=== PATIENT | male | born 1955 | race Caucasian/White ===

== ENCOUNTER → 2018-07-03 07:17 | Outpatient (CLI) | payer OTHER, SELFPAY ==
--- NOTE | 2018-07-03 07:19 | ECHOD_ITS ---
Reason For Study: Previous Abnormal Study Procedure This was a 2D Doppler, Color Flow transthoracic echocardiogram. Exam performed in department. Left Ventricle Normal LV size. Left ventricular systolic function is normal. The estimated ejection fraction is 55 %. Stage 1 diastolic dysfunction. No regional wall motion abnormalities noted. Right Ventricle Normal RV size. Normal systolic function. Atria Normal left atrium. Normal right atrium. Patent foramen ovale. Mitral Valve Normal mitral valve. Tricuspid Valve Normal tricuspid valve. Aortic Valve Trisinus/trileaflet aortic valve. Pulmonic Valve Normal pulmonic valve. Great Vessels Moderately dilated aortic root. The pulmonary artery is normal size. Normal inferior vena cava. Pericardium/Pleural No pericardial effusion. Medication Performed a rapid injection of agitated mix of 9 cc saline and 1cc air to assess for atrial septal defect. MMode/2D Measurements & Calculations LVIDd: 4.7 cm IVSd: 1.3 cm Ao root diam: 5.0 cm LVIDs: 3.7 cm LVPWd: 0.89 cm LA dimension: 3.9 cm RVDd: 3.2 cm FS: 21.2 % LAV(MOD-bp): 48.4 ml LAV(MOD-bp) Indexed: 22.4 ml/m2 LA A4 area: 15.4 cm2 RA A4 area: 19.0 cm2 LAV(MOD-sp2): 56.6 ml LAV(MOD-sp4): 40.2 ml Time Measurements MV dec time: 0.27 sec Doppler Measurements & Calculations MV E max korey: 45.3 cm/sec Lat Peak E' Korey: 6.3 cm/sec Med Peak E' Korey: 5.4 cm/sec MV A max korey: 66.0 cm/sec E/E' lat: 7.2 E/E' med: 8.5 MV E/A: 0.69 Ao V2 max: 108.4 cm/sec AI max korey: 337.1 cm/sec LV V1 max: 97.2 cm/sec Ao max P.7 mmHg AI max P.4 mmHg LV V1 max P.8 mmHg Ao V2 mean: 73.0 cm/sec AI dec slope: 209.5 cm/sec2 LV V1 mean P.9 mmHg Ao mean P.5 mmHg AI P1/2t: 471.3 msec LV V1 mean: 63.0 cm/sec Ao V2 VTI: 22.3 cm LV V1 VTI: 17.5 cm PA V2 max: 88.6 cm/sec Interpretation Summary Normal LV size. Left ventricular systolic function is normal. The estimated ejection fraction is 55 %. Stage 1 diastolic dysfunction. Moderately dilated aortic root. Patent foramen ovale. Compared to the previous the aortic root is more dilated Ordering Physician: Shaggy Yeung Referring Physician: Mike Mccall Performed By: Ha Kerr RCS
--- NOTE | 2018-07-03 11:34 | STRESSREP ---
Stress Test Report Pharmacologic myocardial perfusion stress test. 62-year-old man for preoperative cardiac evaluation. Stress testing. Resting EKG demonstrates sinus rhythm with rate of 69 bpm normal intervals and noted resting blood pressures 122/80 mmHg. 0.4 mg of regadenoson was infused per usual protocol followed by rapid intravenous saline flush injection continuous EKG monitoring was performed. Patient maintained sinus rhythm throughout the recording. At rest there were no ST or T-wave changes noted suggest abnormal flow reserve at peak infusion no ST or T-wave changes were noted suggest abnormal flow reserve. The resting blood pressure was 126/74 with a final blood pressure of the same. Myocardial perfusion protocol. 11.0 mCi of technetium 99m sestamibi was injected at rest. 0.4 mg of regadenoson was infused per usual protocol peak infusion 33.0 mCi of technetium 99m sestamibi was injected stress images were obtained stress and rest images were reconstructed and compared in the short axis vertical long horizontal long axis. Gated images were also obtained pre- Perfusion SPECT analysis: Review of the stress images demonstrate normal uptake of tracer noted in all areas of the myocardium. The resting images similarly demonstrate normal uptake of tracer noted in all areas of the myocardium. No areas of reversibility are noted suggest ischemia. No previous infarct is noted. Gated SPECT analysis: The gated ejection fraction is 51%. Conclusion: Normal pharmacologic myocardial perfusion stress test. Preserved ejection fraction.
== END ==
PROVIDERS: Family Provider Family Medicine; PCP Family Medicine; Visit Provider Internal Medicine Cardiovascular Disease
DX: Z01.810 Encounter for preprocedural cardiovascular examination (principal); I25.10 Atherosclerotic heart disease of native coronary artery without angina pectoris
CPT/HCPCS: 78452; 93017; 93306; A9500; A4216; J2785

== ENCOUNTER 2018-07-04 09:57 | Observation (INO) | payer OTHER, SELFPAY ==
--- NOTE | 2018-06-22 08:14 | PCM.HP.BLA ---
History and Physical DATE OF SURGERY: 07/04/2018 SCHEDULED PROCEDURE: Left total knee arthroplasty HISTORY OF PRESENT ILLNESS: This is a 62-year-old male whose been having ongoing pain in his left knee for the past 10 years. Patient states his pain is constant and aching. He has increased pain going up and down stairs. Patient also has increased pain with prolonged walking. Pain is primarily over the medial joint line. Patient has difficult time with activities of daily living that requires walking. He has stumbled secondary to his left knee pain. Patient has tried conservative measures consisting of rest and previous cortisone injection with minimal relief. She has been on oral medications consisting of Advil, Aleve, Tylenol with minimal relief. Patient denies previous surgeries on the left knee. He has tried a brace without any significant relief. After failing conservative measures and discussing all treatment options with Dr. Olvin Chavez, the patient would like proceed with a left total knee arthroplasty. Patient currently denies any chest pain, shortness of breath, fevers chills, or recent infections. Patient will be getting surgical clearance from his primary care physician. He only lists hypercholesterolemia as a medical problem. REVIEW OF SYSTEMS: ROS: Const: Denies change in appetite, fever,or weight change. CV: Denies chest pain, heart murmur and irregular heartbeat. Resp: Denies cough, pneumonia, SOB, tuberculosis and wheezing. GI: Denies constipation, diarrhea, difficulty swallowing, heartburn, nausea, bloody stools and vomiting. : Urinary: denies incontinence. Musculo: Reports trouble walking and weakness, but denies leg swelling and limp. Skin: Denies Raynaud's, history of shingles and tattoo. Neuro: Denies ambulatory dysfunction, dizziness, numbness/tingling and tremor. Psych: Denies anxiety, insomnia and stress. Tera/Lymph: Denies anemia, bleeding/bruising tendency and past transfusion. Reviewed, no changes. PAST MEDICAL HISTORY: Advance Care Plan: Other Directive, P.O.A. Effective Date: 10/28/2017 PMH: Medical Problems: Hypercholesterolemia Accidents: Fracture - RT ARM Surgical Hx: Hip Replacement Rt - AISHA SOOD Anesthesia Complications: None Assistive Devices: Glasses Reviewed, no changes. SOCIAL HISTORY: SH: Marital: .Occupation: Currently Working - [employer].Work Status: Currently Working.Hand Dominance: Right-handed. Personal Habits: Cigarette Use: Former Cigarette Smoker.Alcohol: Occasionally.Drug Use: Denies Use.Enjoy Exercising: Never Exercises. Reviewed, no changes. VITALS: Ht: 73 Wt: 199lb Wt k.266 BMI: 26.3 BP: 124/82 T: 98.0 T: 36.7C ALLERGIES: No Known Drug Allergy MEDICATIONS: MS Contin 15 mg 1 by mouth every 12 hours, Oxycodone HCL 5 mg 1-2 tab by mouth every 4 hours, Meloxicam 7.5 mg 1 by mouth twice a day with food, Promethazine HCL 12.5 mg 1-2 tablets by mouth every 6 hours, Famotidine 20 mg 1 by mouth every day, Aspir-81 81 mg 1 by mouth every day, Glucosamine 500 mg 1po bid, Advil 200 mg as needed, Ibuprofen 200 mg 2 tablets by mouth for pain as needed PRE-OP EXAM: General appearance:NORMAL Other: Eyes: Conjunctivae and lids: NORMAL Pupils: ERR Ears, Nose, Mouth, and Throat: NORMAL Other: Inspection of lips, teeth and gums: NORMAL Other: Neck: Examination of neck: no masses noted. Respiratory: Assessment of respiratory effort: NORMAL Other: Auscultation of lungs: clear to auscultation no wheezes, rhonchi or rales. Cardiovascular: Auscultation of heart: regular rate and rhythm, no murmurs, gallops or rubs. Exam of carotid arteries: NORMAL Other: Gastrointestinal: Exam of abdomen: soft, nontender, nondistended bowel sounds present. PHYSICAL EXAMINATION: Patient does walk with antalgic gait. Patient has tenderness to palpation over the medial joint line. Range of motion left knee lacks 5 of extension to 120 of flexion. Positive crepitus upon range of motion. Patient does have varus alignment. Sensation intact to light touch. IMAGING STUDIES: X-rays of the left knee were obtained on June 02, 2018 which does reveal varus alignment with medial joint space narrowing, subchondral sclerosis, and osteophyte formation consistent with severe osteoarthritis. IMPRESSION: 1. Severe left knee osteoarthritis with varus alignment 2. Hypercholesterolemia PLAN: Dr. Chavez did discuss and review with the patient all treatment options including surgical versus nonsurgical options. Patient does wish to proceed with the above-stated procedure. Potential risks, benefits, and complications of the procedure were discussed in detail including but not limited to , infection, nerve and blood vessel damage, persistent pain, numbness, tingling, paresthesias, blood clot, pulmonary embolism, and requirement for possible further surgery. The patient expressed full understanding and has no further questions for the doctor. Patient does agree to proceed with the above-stated procedure and has signed the surgery consent form. ___ I have re-examined the patient. There are no clinical changes since date of exam. ___ See progress notes for changes. ___ Dictated on admission Date: Time: Signature:
[2018-06-22 15:10] VITALS: BP 126/70; PULSE 93; RESP 17; TEMP 37.2; O2SAT 96; BMI 26.5
--- NOTE | 2018-06-22 15:36 | SDCEKG_ITS ---
Test Reason : Blood Pressure : / mmHG Vent. Rate : 091 BPM Atrial Rate : 091 BPM P-R Int : 188 ms QRS Dur : 082 ms QT Int : 358 ms P-R-T Axes : 035 -24 035 degrees QTc Int : 440 ms Normal sinus rhythm Normal ECG Confirmed by JAMES POLO, ESTEE ([id number]), editor news RAHEL KIRK ([id number]) on 06/26/2018 2:39:55 PM Referred By: Olvin Chavez Confirmed By:ESTEE RAMIREZ MD
[2018-06-22 16:24] LABS: Absolute Lymphocyte Count 2.15 X10^3/ul (0.83-4.51); Absolute Neutrophil Count 3.6 X10^3/uL (2.0-7.7); Basophil# 0.02 X10^3/uL; Basophil% 0.3 % (0-1); Eosinophils% 3.1 % (0-5); Hematocrit 42.4 % (40-54); Hemoglobin 14.4 g/dl (13.0-16.5); Lymphocyte # 2.15 X10^3/ul (4.0); Lymphocyte % 33.2 % (19-41); Mean Corpuscular Hgb 32.4 pg (27.0-32.0); Mean Corpuscular Volume 95.3 fL (80-94); Mean Platelet Vol. 9.9 fl (6.2-12.0); Monocyte# 0.52 X10^3/uL; Neutrophil # 3.59 X10^3/uL (2.7-7.7); Neutrophil % 55.4 % (47-70); Platelet Count 230 K/mm3 (150-450); RBC Distribution Width CV 12.8 % (11.6-14.6); RBC Distribution Width SD 44.5 fl (35.1-43.9); Red Blood Count 4.45 M/mm3 (4.6-6.2); White Blood Count 6.5 K/mm3 (4.4-11.0)
[2018-06-22 16:30] LABS: POSITIVE COUNT NO; POSITIVE DIFFERENTIAL NO; POSITIVE MORPHOLOGY NO
[2018-06-22 16:38] LABS: Anion Gap 8 (5-15); BUN 24 mg/dL (7-18); BUN/Creat Ratio 21.1 RATIO (10-20); Calcium,Total 8.4 mg/dL (8.5-10.1); Chloride 111 mmol/L (98-107); Creatinine, Serum 1.14 mg/dL (0.70-1.30); EST Glomerular Filtration Rate 69 mL/min (>60); Est Glom Filt Rate - Afr Amer 84 mL/min (>60); Glucose 169 mg/dL (74-106); Potassium 3.9 mmol/L (3.5-5.1); Sodium Level 144 mmol/L (136-145)
--- NOTE | 2018-06-30 12:14 | CASEMGMT ---
Voicemail left for patient to return call regarding discharge needs following upcoming surgery. Meseret Walter LPN Clinical Support
--- NOTE | 2018-06-30 12:34 | CASEMGMT ---
Call placed to patient to discuss discharge needs following upcoming surgery. Per patient, a cardiac issue came up and patient is scheduled for a stress test Tuesday. Patient will have surgery Tuesday pending stress test results. Patient plans to return home and does have assistance. Patient has a walker, toilet riser. Patient is unsure whether outpatient physical therapy is set up yet. Patient has 3 steps into home and has bedroom/bathroom on 1st level of home. Informed patient that RN-CM will likely see patient during hospital stay to ensure all discharge needs are met. Meseret Walter LPN Clinical Support
[2018-07-04] VITALS (10 sets, daily range): BP systolic 118–150; BP diastolic 69–79; PULSE 78–97; RESP 14–18; TEMP 36.4–37.3; O2SAT 93–98; BMI 26.5
[2018-07-04] MEDS: Acetaminophen 500 MG Tablet 1000 MG PO ×3 (06:06→21:10)
[2018-07-04] MEDS: oxyCODONE HCl Cr 10 MG Tablet PO (06:06)
[2018-07-04] MEDS: Celecoxib 200 MG Capsule 400 MG PO (06:06)
--- NOTE | 2018-07-04 06:28 | RAD_ITS ---
STUDY: X-RAY - LEFT KNEE REASON FOR EXAM: Male, 62 years old. Total knee replacement. TECHNIQUE: 2 view(s) of the knee. COMPARISON: None. FINDINGS: Normal visualized distal femur. Normal visualized proximal tibia and fibula. Normal proximal tibiofibular articulation. The patient is status post total knee replacement. There is good alignment. Postoperative soft tissue changes. RAD/Knee 1 or 2 Views IMPRESSION: Status post total knee replacement. There is good alignment. Postoperative soft tissue changes. Electronically Signed: Giovanni Bowman MD at 13:03 EDT Tel [phone], Service support ,
[2018-07-04] MEDS: Cefazolin 2 GM in 0.9% Normal Saline 100 ML IV (07:10)
[2018-07-04] MEDS: Lactated Ringers 1,000 ML 999 ML IV (07:13)
--- NOTE | 2018-07-04 08:39 | PCM.OPRPT ---
Report of Operation Date of Procedure: 07/04/18 Pre-Operative Diagnosis: Left knee primary osteoarthritis Post-Operative Diagnosis: Left knee primary osteoarthritis Surgery/Procedure Performed:: Left total knee replacement Description of Surgical Findings:: Stable knee with good patella tracking program host: Darryl Gil Type of Anesthesia:: Spinal Anesthesiologist: Eriberto Field Special Medications: 2 g Ancef, 1 g TXA at incision, 1 g TXA closure, 10 mg Decadron, joint cocktail (5 mg Duramorph, 30 mL of 0.5% Ropivicaine, 1000 units of epinephrine, 30 mg of Toradol) Specimen's removed: Bony cuts Estimated Blood Loss (mL): 75 Fluids Replaced: 1000 mL crystalloid Description of Procedure: Implants used: 1. Samson size 5 press-fit triathlon cruciate retaining distal femoral component 2. Utopia size 6 press-fit tibial baseplate 3. Samson X3 11 mm CS polyethylene 4. [place] X3 35 mm asymmetric patella Brief history operative indications: 62-year-old m with history of left knee osteoarthritis with radiographic findings with loss of joint space, osteophyte formation and subchondral sclerosis. Failed conservative measures as mentioned in the H&P. Discussion of total knee arthroplasty as well as risk and benefits were discussed the patient including but not limited to blood loss, DVTs, PEs, neurovascular damage, general risk of anesthesia including loss of life, and stiffness or instability were discussed with patient. Patient demonstrated understanding and was able to sign informed consent. Procedure: On the date of procedure patient's left lower extremity was marked in the preoperative area. The patient was then taken back to the operating room where the patient was placed on the table in the supine position. All bony prominences were identified a well-padded. Anesthesia assumed control of the C-spine and airway and remained controlled throughout the remainder of the procedure. A tourniquet was placed on the left upper thigh and the leg was prepped in a sterile fashion. The surgeon then scrubbed at this time .Upon reentering the room left lower extremity was draped in a standard orthopedic fashion. A timeout was then called and everyone agreed upon the side, the site, the procedure to be performed, patient's identity and antibiotics given. Esmarch bandage was used to exsanguinate the extremity and the tourniquet was placed up to 250 mmHg with the knee in flexion. A midline skin incision was made and sharp dissection was taken down through skin subcutaneous tissue and fat. The standard medial parapatellar incision was made and the patella was subluxed laterally. The standard deep MCL release was done and the fat pad was resected. Next our attention was directed to the femur. Navigation pins were placed, navigation was registered. The distal femoral cutting block was pinned into place and 10 mm of distal femur resection was completed. The distal femoral cut was verified with navigation. The knee was then placed in deep flexion in the standard [employer] sizing guide was used to place the femoral component in 3? external rotation based on the posterior condyles. A size 5 4-in-1 cutting block was selected and pinned into place. The anterior cut was then made and checked for notching. The subsequent anterior chamfer cuts, posterior condylar cuts and posterior chamfer cuts were made while ensuring the MCL and LCL were protected. Our attention was then turned to the tibia where the navigation pins were placed, navigation was registered. [place] tibial cutting guide was used to make the appropriate tibial cut 90 degrees from the mechanical axis. Navigation was then used to verify the cut. A size 6 tibial base plate was selected. the knee was flexed to 90 degrees and the soft tissues and posterior osteophytes were removed from the joint. 40 cc of the periarticular injection was injected into the posterior medial corner of the joint. The appropriate trials were then placed on the femur and tibia. A trial polyethylene was trialed to ensure proper balancing and stability of the knee. Patella tracking, was then verified and corrected appropriately as needed. The appropriate tibial internal rotation was then marked with a bovie. Our attention was then directed to the patella. The patella was everted and a flat resection was made. The lug holes were drilled and the patella trial was placed. Patellar tracking was checked and deemed appropriate. Once we were happy lug holes were drilled for the femur and trial components were removed. Cement was mixed at this time and the tourniquet was let down the tibia was subluxed and pinned into place and the keel was punched and the canal was reamed. Final components were verified and opened, and cement was mixed in a vacuum. Samson Simplex cement was used. The wound was copiously irrigated with normal saline. When the cement was ready the press-fit components were impacted into place starting with the tibia, femur and finally the patella cemented into place. The trial poly component was placed and the knee was placed in full extension. All excess cement was removed in the process. Once the cement had cured the tracking, alignment and balance were verified and a size 11 mm polyethylene component was placed. Once the final components were placed the wound was copiously irrigated with normal saline solution and the periarticular injection was given. The wound was closed in a layer gurrola fashion using #1 vicryl interrupted sutures for the arthrotomy, 2-0 interrupted Vicryl suture for the subcuticular layer and belkis for final skin closure. A sterile compressive dressing was then placed. The patient was then awakened from anesthesia, transferred to the [place] and transferred to the PACU for recovery. Post op plan DVT ppx: ASA 81mg, thigh high compression stockings Follow up: in office in 2 weeks for wound check PT: to start POD #0 at hospital, outpatient PT should be arranged. My physician assistant manager was a vital part of this case. He was important in appropriate retraction during the case, and protection of soft tissues during bony cuts. His intimate knowledge of the case and my steps aided in safe and expedient completion of the procedure as well as appropriate position of the leg during the case. He was also vital in assisting with closure under my direct supervision. Grafts/Implants Used: Utopia triathlon press-fit total knee - Complications None - Admit VTE Documentation VTE Present on Admission: No VTE Mechan Device Prophylaxis: SCD's, Thigh High BRIDGETTE Hose VTE Pharm Prophylaxis ordered?: Yes
--- NOTE | 2018-07-04 08:42 | OP.PCM_ITS ---
Report of Operation Date of Procedure: 07/04/18 Pre-Operative Diagnosis: Left knee primary osteoarthritis Post-Operative Diagnosis: Left knee primary osteoarthritis Surgery/Procedure Performed:: Left total knee replacement Description of Surgical Findings:: Stable knee with good patella tracking salvager helper: Darryl Gil Type of Anesthesia:: Spinal Anesthesiologist: Eriberto Field Special Medications: 2 g Ancef, 1 g TXA at incision, 1 g TXA closure, 10 mg Decadron, joint cocktail (5 mg Duramorph, 30 mL of 0.5% Ropivicaine, 1000 units of epinephrine, 30 mg of Toradol) Specimen's removed: Bony cuts Estimated Blood Loss (mL): 75 Fluids Replaced: 1000 mL crystalloid Description of Procedure: Implants used: 1. Samson size 5 press-fit triathlon cruciate retaining distal femoral component 2. Lyons size 6 press-fit tibial baseplate 3. Samson X3 11 mm CS polyethylene 4. Lyons X3 35 mm asymmetric patella Brief history operative indications: 62-year-old m with history of left knee osteoarthritis with radiographic findings with loss of joint space, osteophyte formation and subchondral sclerosis. Failed conservative measures as mentioned in the H&P. Discussion of total knee arthroplasty as well as risk and benefits were discussed the patient including but not limited to blood loss, DVTs, PEs, neurovascular damage, general risk of anesthesia including loss of life, and stiffness or instability were discussed with patient. Patient demonstrated understanding and was able to sign informed consent. Procedure: On the date of procedure patient's left lower extremity was marked in the preoperative area. The patient was then taken back to the operating room where the patient was placed on the table in the supine position. All bony prominences were identified a well-padded. Anesthesia assumed control of the C-spine and airway and remained controlled throughout the remainder of the procedure. A tourniquet was placed on the left upper thigh and the leg was prepped in a sterile fashion. The surgeon then scrubbed at this time .Upon reentering the room left lower extremity was draped in a standard orthopedic fashion. A timeout was then called and everyone agreed upon the side, the site, the procedure to be performed, patient's identity and antibiotics given. Esmarch bandage was used to exsanguinate the extremity and the tourniquet was placed up to 250 mmHg with the knee in flexion. A midline skin incision was made and sharp dissection was taken down through skin subcutaneous tissue and fat. The standard medial parapatellar incision was made and the patella was subluxed laterally. The standard deep MCL release was done and the fat pad was resected. Next our attention was directed to the femur. Navigation pins were placed, navigation was registered. The distal femoral cutting block was pinned into plac e and 10 mm of distal femur resection was completed. The distal femoral cut was verified with navigation. The knee was then placed in deep flexion in the standard MoBeam sizing guide was used to place the femoral component in 3? external rotation based on the posterior condyles. A size 5 4-in-1 cutting block was selected and pinned into place. The anterior cut was then made and checked for notching. The subsequent anterior chamfer cuts, posterior condylar cuts and posterior chamfer cuts were made while ensuring the MCL and LCL were protected. Our attention was then turned to the tibia where the navigation pins were placed, navigation was registered. Qnovo tibial cutting guide was used to make the appropriate tibial cut 90 degrees from the mechanical axis. Navigation was then used to verify the cut. A size 6 tibial base plate was selected. the knee was flexed to 90 degrees and the soft tissues and posterior osteophytes were removed from the joint. 40 cc of the periarticular injection was injected into the posterior medial corner of the joint. The appropriate trials were then placed on the femur and tibia. A trial polyethylene was trialed to ensure proper balancing and stability of the knee. Patella tracking, was then verified and corrected appropriately as needed. The appropriate tibial internal rotation was then marked with a bovie. Our attention was then directed to the patella. The patella was everted and a flat resection was made. The lug holes were drilled and the patella trial was placed. Patellar tracking was checked and deemed appropriate. Once we were happy lug holes were drilled for the femur and trial components were removed. Cement was mixed at this time and the tourniquet was let down the tibia was subluxed and pinned into place and the keel was punched and the canal was reamed. Final components were verified and opened, and cement was mixed in a vacuum. Lyons Simplex cement was used. The wound was copiously irrigated with normal saline. When the cement was ready the press-fit components were impacted into place starting with the tibia, femur and finally the patella cemented into place. The trial poly component was placed and the knee was placed in full extension. All excess cement was removed in the process. Once the cement had cured the tracking, alignment and balance were verified and a size 11 mm polyethylene component was placed. Once the final components were placed the wound was copiously irrigated with normal saline solution and the periarticular injection was given. The wound was closed in a layer grurola fashion using #1 vicryl interrupted sutures for the arthrotomy, 2-0 interrupted Vicryl suture for the subcuticular layer and belkis for final skin closure. A sterile compressive dressing was then placed. The patient was then awakened from anesthesia, transferred to the [place] and transferred to the PACU for recovery. Post op plan DVT ppx: ASA 81mg, thigh high compression stockings Follow up: in office in 2 weeks for wound check PT: to start POD #0 at hospital, outpatient PT should be arranged. My physician trade sales assistant was a vital part of this case. He was important in appropriate retraction during the case, and protection of soft tissues during bony cuts. His intimate knowledge of the case and my steps aided in safe and expedient completion of the procedure as well as appropriate position of the leg during the case. He was also vital in assisting with closure under my direct supervision. Grafts/Implants Used: Lyons triathlon press-fit total knee - Complications None - Admit VTE Documentation VTE Present on Admission: No VTE Mechan Device Prophylaxis: SCD's, Thigh High BRIDGETTE Hose VTE Pharm Prophylaxis ordered?: Yes
[2018-07-04] MEDS: Famotidine 20 MG Tablet PO (12:29)
[2018-07-04] MEDS: Senna/Docusate Sodium 1 Tablet 2 TABLET PO ×2 (12:29→21:10)
[2018-07-04] MEDS: oxyCODONE 5 MG Tablet PO (12:31)
[2018-07-04] MEDS: Ketorolac 15 MG/ML Vial IV ×2 (12:31→18:34)
[2018-07-04] MEDS: Lactated Ringers 1,000 ML 125 ML IV (12:35)
--- NOTE | 2018-07-04 13:21 | CASEMGMT ---
RN CM Note. Intro role of CM to patient. Pt states he plans to return home and [facility] set up Home Health. Pt does not know which agency. Call to surgery coordinator to request [facility] agency- message left. Has equipment @ home, brother will be able to assist pt. Aureliano BROTHERS BSN ACM
[2018-07-04] MEDS: Cefazolin 1 GM/50 ML BAG IV ×2 (14:33→22:59)
[2018-07-04] MEDS: Aspirin 81 MG TAB.CHEW PO (18:30)
[2018-07-05 05:00] VITALS: BP 115/64; PULSE 66; RESP 18; TEMP 36.6
[2018-07-05] MEDS: Acetaminophen 500 MG Tablet 1000 MG PO (05:23)
[2018-07-05 06:17] LABS: Hemoglobin 12.4 g/dl (13.0-16.5); Mean Corp Hgb Conc 34.4 g/gl (32-36); Mean Corpuscular Hgb 32.8 pg (27.0-32.0); Mean Corpuscular Volume 95.2 fL (80-94); Mean Platelet Vol. 9.8 fl (6.2-12.0); Platelet Count 191 K/mm3 (150-450); RBC Distribution Width CV 12.3 % (11.6-14.6); RBC Distribution Width SD 41.8 fl (35.1-43.9); Red Blood Count 3.78 M/mm3 (4.6-6.2); White Blood Count 9.5 K/mm3 (4.4-11.0)
[2018-07-05 06:21] LABS: Scan Indicated on CBC? Y/N NO
[2018-07-05 06:40] LABS: Anion Gap 6 (5-15); BUN 17 mg/dL (7-18); BUN/Creat Ratio 16.7 RATIO (10-20); Calcium,Total 8.1 mg/dL (8.5-10.1); Chloride 109 mmol/L (98-107); Creatinine, Serum 1.02 mg/dL (0.70-1.30); EST Glomerular Filtration Rate 79 mL/min (>60); Est Glom Filt Rate - Afr Amer 95 mL/min (>60); Estimated Creatinine Clearance 85.95 ml/min; Glucose 108 mg/dL (74-106); Potassium 4.1 mmol/L (3.5-5.1); Sodium Level 141 mmol/L (136-145)
--- NOTE | 2018-07-05 07:06 | PCM.PN.ORT ---
Subjective: The patient was sitting in bedside chair upon examination. Patient denies any chest pain, shortness of breath, dizziness, lightheadedness, nausea or vomiting, or calf pain. Pain is controlled on medications. No adverse overnight events. Overall patient is doing well. Patient was initially planned for an outpatient total knee arthroplasty. However patient had an abnormal echocardiogram in which he followed with Dr Yeung. Patient underwent a myocardial perfusion scan and was cleared for surgery by Dr. Yeung. Patient is following up outpatient with the cardiology after surgery. Patient already has all of his medications for discharge since this was initially to be an outpatient total knee replacement. Objective: Vital signs stable and afebrile. Patient is able to plantarflex and dorsiflex actively. Sensation is intact to light touch to saphenous, sural, superficial and deep peroneal, and tibial distribution. Dressing is clean dry and intact. Negative Homans bilaterally, negative signs and symptoms of DVT. - Physical Exam General: Alert, Oriented x3, Cooperative, No apparent distress Vital Signs Temp Pulse Resp BP Pulse Ox 97.9 F 66 18 115/64 98 07/05/18 05:00 07/05/18 05:00 07/05/18 05:00 07/05/18 05:00 07/04/18 20:50 Oxygen Flow Rate (L/min) 2 Oxygen Delivery Method Room Air Weight: 91.2 kg Body Mass Index (BMI) 26.5 Intake and Output for Last 24 Hours 07/03/18 07/04/18 07/05/18 23:59 23:59 23:59 Intake Total 3846 / 3846 925 / 925 Output Total 1550 / 1550 Balance 3846 / 3846 -625 / -625 Laboratory Tests Past 24 Hrs 07/05/18 07/05/18 05:15 05:15 WBC 9.5 RBC 3.78 L Hgb 12.4 L Hct 36.0 L MCV 95.2 H MCH 32.8 H MCHC 34.4 RDW 12.3 RDW Differential 41.8 Plt Count 191 MPV 9.8 Sodium 141 Potassium 4.1 Chloride 109 H Carbon Dioxide 26.0 Anion Gap 6 BUN 17 Creatinine 1.02 Estim Creat Clear Calc 85.95 Est GFR (MDRD) Af Amer 95 Est GFR (MDRD) Non-Af 79 BUN/Creatinine Ratio 16.7 Glucose 108 H Calcium 8.1 L Medical Necessity - Tobacco Use Smoking Status: Former smoker Tobacco Use: Cigarettes Assessment/Plan All Active Problems (Last Updated 07/03/18 @ 15:01 by Jennifer Lewis) Preop cardiovascular exam (Acute) 1. S/P left total knee arthroplasty POD #1 2. Continue Pain Medications: Tylenol and OxyIR, patient already has prescriptions 3. DVT Prophylaxis: Aspirin 81 mg twice daily for 4 weeks postoperatively 4. PT/OT: Weightbearing as tolerated 5. H & H: 12.4/36.0, asymptomatic 6. Encouraged Incentive Spirometry 7. Disposition: Plan is for discharge home today. Patient is orthopedically stable. Patient already has all prescriptions at home. Patient will follow-up per postop instructions. He has set up for home health physical therapy. Patient will also follow-up with cardiology postoperatively as scheduled.
--- NOTE | 2018-07-05 07:14 | DCINST_ITS ---
Discharge Diet: No Restrictions Discharge Activity: May Not Drive May shower in (days): 1 - Turned dressing away from water Ice area for (Minutes): 20 - every hour while awake. Weight Bearing Status: Weight bearing as tolerated Elevate: Operative Extremity Additional Activity Instructions:: Wear elastic stockings for 2 weeks after your surgery. Call your doctor if your incision/area has: Continuous Slow Oozing, Sudden Increased Bleeding, Increased Pain/ Swelling, Increased Redness, Foul Smelling Discharge Call your doctor if you observe: Fever of 101 or Higher, Coldness, Increased Pain, Numbness or Tingling, Change in Color, Calf discomfort, Uncontrolled pain Remove Dressing in (days):: 4 - Okay to remove on July 09, 2018 Additional Instructions: Follow [facility] postop instructions Allergies/Adverse Reactions: Allergies No Known Allergies Allergy (Verified 06/28/18 14:23) Medications to take at Discharge Acetaminophen [Tylenol] 1,000 mg PO Q8 tablet 07/05/18 Aspirin [Aspirin, Baby] 81 mg PO BIDCM tab.chew 07/05/18 Famotidine [Pepcid] 20 mg PO DAILY tablet 07/05/18 Oxycodone [Oxyir] 5 - 10 mg PO Q4H PRN PRN 7 Days tablet 07/05/18 Senna/Docusate Sodium [Senokot-S] 2 tablet PO BID tablet 07/05/18 Primary Care Physician: Mike Mccall MD [Primary Care Provider] - Test Results: Test results from this visit will be discussed in further detail at your follow- up appointment, if applicable. Please Follow Up With: Physical therapy When: 07/07/18 @ 10:30 am Please Follow Up With: Darryl Gil PA-C When: 07/17/18 @ 3:00 pm
[2018-07-05 07:22] VITALS: O2SAT 95
[2018-07-05] MEDS: oxyCODONE 5 MG Tablet PO ×2 (07:29→11:29)
[2018-07-05] MEDS: Meloxicam 7.5 MG Tablet PO (08:20)
[2018-07-05] MEDS: Famotidine 20 MG Tablet PO (08:20)
[2018-07-05] MEDS: Aspirin 81 MG TAB.CHEW PO (08:20)
[2018-07-05] MEDS: Senna/Docusate Sodium 1 Tablet 2 TABLET PO (08:21)
[2018-07-05 08:50] VITALS: BP 113/68; PULSE 63; RESP 18; TEMP 37; O2SAT 95
--- NOTE | 2018-07-05 10:32 | CASEMGMT ---
Patient to discharge with HHC. HHC setup by [facility] with [facility]. DENEEN CM faxed discharge instructions to [facility] and called to confirm discharge for today. CM will continue to follow this patient and plan for a safe discharge.
== END 2018-07-05 11:43 | disposition home health service (06) ==
PROVIDERS: Admitting Provider Specialist; Family Provider Family Medicine; PCP Family Medicine; Referring Provider Specialist; Visit Provider Specialist
PROC: (CPT 27447; principal; 2018-07-04 06:45)
DX: M17.12 Unilateral primary osteoarthritis, left knee (principal); Z87.891 Personal history of nicotine dependence; E78.00 Pure hypercholesterolemia, unspecified; Z23 Encounter for immunization; Z79.82 Long term (current) use of aspirin; Z79.899 Other long term (current) drug therapy
CPT/HCPCS: 27447; 64447; 36415; 73560; 80048; 85025; 85027; 87081; 93005; 96361; 96365; 96366; 96375; 96376; 97110; 97116; 97161; 97166; 97530; 99218; 99251; 99406; C1776; J7120; 90686; G0378; G0379; G0463; J2405

== ENCOUNTER → 2018-09-21 13:22 | Outpatient (CLI) | payer OTHER, SELFPAY ==
--- NOTE | 2018-09-21 13:24 | CT_ITS ---
STUDY: CTA CHEST REASON FOR EXAM: Male, 63 years old. History of a dilated aortic root. RADIATION DOSAGE (If Supplied By Facility): CTDIvol = ( 13.69 ) mGy, DLP = ( 540.14 ) mGycm TECHNIQUE: The examination was performed with the intravenous administration of 100CC ml of Isovue 370 contrast material. Post-processing of the angiographic images was performed, with multiplanar reformation and 3D reconstruction. Individualized dose optimization techniques were used for this CT. COMPARISON: None. FINDINGS: Normal enhancement of the main pulmonary artery and right and left pulmonary arteries. Normal enhancement of the bilateral peripheral pulmonary arteries. There is no demonstrated pulmonary embolism. There is aneurysmal dilatation of the ascending aorta. The transverse diameter of the ascending aorta measures 44.9 mm's. There is no demonstrated aortic dissection. Normal heart and pericardium. There are visualized mediastinal lymph nodes, which are within normal size limits, and with normal morphology. Normal hilar regions. Normal visualized trachea and bronchi. The lungs are well expanded. Normal pulmonary parenchyma. There is thickening of the left major fissure. Normal chest wall structures. There are degenerative changes of thoracic spine. There is a 2.3 cm x 2 cm hypodensity in the posterior medial aspect of the right lobe of the liver suggestive of a small cyst. There is also evidence of a similar-appearing nodule measuring 1.3 cm in the dome of the liver. Hyperplasia of the left adrenal gland. CT/CTA Chest W/WO Contrast IMPRESSION: Dilatation of the root of the aorta with a transverse dimension of 44.9 mm. Hyperplasia of the left adrenal gland. Hepatic cysts. Electronically Signed: Giovanni Bowman MD at 15:06 EST Tel [phone], Service support ,
[2018-09-21 13:41] LABS: CREATININE FINGERSTICK 1.1 mg/dL (0.70-1.30); EGFR FINGERSTICK > 60.0000 mL/min (>60)
--- OUTSIDE RECORDS SUMMARY | 2018-11-07 09:25 | XMS RPT_ITS ---
:1955 Author Organization [place] Support Name Relationship Address Phone PARESH CARDONA Unavailable Unavailable + [place] [address] FREDY STEVENS Unavailable Unavailable + [place] [address] [employer] Unavailable [address] + [place] [address] PARESH CARDONA Unavailable Unavailable + [place] [address] FREDY STEVENS Unavailable Unavailable + [place] [address] [employer] Unavailable [address] + [place] [address] PARESH CARDONA Unavailable Unavailable + [place] [address] FREDY STEVENS Unavailable Unavailable + [place] [address] [employer] Unavailable [address] + [place] [address] PARESH CARDONA Unavailable Unavailable + [place] [address] DARYL STEVENSRY Unavailable Unavailable + [place] [address] [employer] Unavailable [address] + [place] [address] PARESH CARDONA Unavailable Unavailable + [place] [address] [employer] Unavailable [address] + [place] [address] PARESH CARDONA Unavailable Unavailable + [place] [address] [employer] Unavailable [address] + [place] [id number] PARESH CARDONA Unavailable Unavailable + [place] [address] FREDY STEVENS Unavailable Unavailable + [place] [id number] [employer] Unavailable [address] [facility] [address] + [place] [phone] Care Team Providers Name Role Phone Wayne See Attending Unavailable Stencel, Adilson Primary Care Unavailable Furness, Wayne Lennon Attending Unavailable Stencel, Adilson Primary Care Unavailable Gamal, [place] Attending Unavailable Gamal, [place] Referring Unavailable STENCEL, ADILSON Primary Care Unavailable KathyOlvin Admitting Unavailable Kathy, Olvin Attending Unavailable Kathy, Olvin Referring Unavailable STENCEL, ADILSON Primary Care Unavailable Jennifer Lewis Attending Unavailable Gamal, [place] Attending Unavailable STENCEL, ADILSON Referring Unavailable STENCEL, ADILSON Primary Care Unavailable Gamal, [place] Attending Unavailable Gamal, Shaggy Referring Unavailable STENCEL, ADILSON Primary Care Unavailable Gamal, [place] Attending Unavailable Kathy, Olvin Referring Unavailable Gamal, [place] Attending Unavailable Gamal, Shaggy Referring Unavailable PROBLEMS PROBLEMS DATE TYPE CONDITION / CODE ATTENDING STATUS SOURCE 07/20/2018 Unknown Z01.810 - Encounter Gamal, Shaggy Active Chaitanya for preprocedural [facility] examination / Repository Z01.810(ICD-10) PROCEDURES PROCEDURES No Procedure Records FoundRESULTS RESULTS CREATININE FINGERSTICK Collected: 09/21/2018 Status: F Source: [place] 1:33 PM [facility] REPOSITORY TYPE CODE TESTS RESULT OUT OF RANGE REFERENCE UNITS LAB L9100.0210 0.70-1.30 mg/dL Normal CREATININE WB 1.1 LAB L9100.0220 >60 mL/min EGFR WB Normal > 60.0000 Performed By: #### L9100.0200 #### [facility] Point of Care [address] [place] [address] CTA CHEST W/WO Observed: 09/21/2018 Status: F Source: [place] CONTRAST 1:24 PM [facility] REPOSITORY [facility] Imaging Services [address] [place] [address] CTA Chest W/WO Contrast MR#: [id number] Acct: [id number] Name: AUBREE STEVENS Rep #: [id number] : 1955 M 63 From: Giovanni Bowman MD PCP: Adilson Mccall MD Status: REG CLI Study: CTA Chest W/WO Contrast Date of Exam: 09/21/18 Exam# [id number] Ordering Dr: Shaggy Yeung MD STUDY: CTA CHEST REASON FOR EXAM: Male, 63 years old. History of a dilated aortic root. RADIATION DOSAGE (If Supplied By Facility): CTDIvol = ( 13.69 ) mGy, DLP = ( 540.14 ) mGycm TECHNIQUE: The examination was performed with the intravenous administration of 100CC ml of Isovue 370 contrast material. Post-processing of the angiographic images was performed, with multiplanar reformation and 3D reconstruction. Individualized dose optimization techniques were used for this CT. COMPARISON: None. FINDINGS: Normal enhancement of the main pulmonary artery and right and left pulmonary arteries. Normal enhancement of the bilateral peripheral pulmonary arteries. There is no demonstrated pulmonary embolism. There is aneurysmal dilatation of the ascending aorta. The transverse diameter of the ascending aorta measures 44.9 mm's. There is no demonstrated aortic dissection. Normal heart and pericardium. There are visualized mediastinal lymph nodes, which are within normal size limits, and with normal morphology. Normal hilar regions. Normal visualized trachea and bronchi. The lungs are well expanded. Normal pulmonary parenchyma. There is thickening of the left major fissure. Normal chest wall structures. There are degenerative changes of thoracic spine. There is a 2.3 cm x 2 cm hypodensity in the posterior medial aspect of the right lobe of the liver suggestive of a small cyst. There is also evidence of a similar-appearing nodule measuring 1.3 cm in the dome of the liver. Hyperplasia of the left adrenal gland. CT/CTA Chest W/WO Contrast IMPRESSION: Dilatation of the root of the aorta with a transverse dimension of 44.9 mm. Hyperplasia of the left adrenal gland. Hepatic cysts. Electronically Signed: Giovanni Bowman MD at 15:06 EST Tel [phone], Service support , CC: Shaggy Yeung MD; Adilson Mccall MD Flexo Operator: Signed DISCHARGE INSTRUCTION Observed: 07/05/2018 Status: F Source: [place] 7:16 AM [facility] REPOSITORY [facility] Medical Records Department [address] [place] [address] Instructions for Home/Discharge Instructions 07/05/18 0712 MR#: [id number] Acct: [id number] Name: AUBREE STEVENS Rep #: [id number] : 1955 62 From: Darryl Gil PA-C PCP: Adilson Mccall MD Status: ADM ISABELLE ADDENDUM by Darryl DEVLIN on 07/05/18 at 0716 There was an error with regards to follow-up: Patient's follow- up with Iftikhar Gil is on 07/17/18 @ 8:30 am. 07/05/18 0716 Date Darryl Gil PA-C cc: Adilson Mccall MD * Signed Discharge Diet: No Restrictions Discharge Activity: May Not Drive May shower in (days): 1 - Turned dressing away from water Ice area for (Minutes): 20 - every hour while awake. Weight Bearing Status: Weight bearing as tolerated Elevate: Operative Extremity Additional Activity Instructions:: Wear elastic stockings for 2 weeks after your surgery. Call your doctor if your incision/area has: Continuous Slow Oozing, Sudden Increased Bleeding, Increased Pain/ Swelling, Increased Redness, Foul Smelling Discharge Call your doctor if you observe: Fever of 101 or Higher, Coldness, Increased Pain, Numbness or Tingling, Change in Color, Calf discomfort, Uncontrolled pain Remove Dressing in (days):: 4 - Okay to remove on July 09, 2018 Additional Instructions: Follow [facility] postop instructions Allergies/Adverse Reactions: Allergies No Known Allergies Allergy (Verified 06/28/18 14:23) Medications to take at Discharge Acetaminophen [Tylenol] 1,000 mg PO Q8 tablet 07/05/18 Aspirin [Aspirin, Baby] 81 mg PO BIDCM tab.chew 07/05/18 Famotidine [Pepcid] 20 mg PO DAILY tablet 07/05/18 Oxycodone [Oxyir] 5 - 10 mg PO Q4H PRN PRN 7 Days tablet 07/05/18 Senna/Docusate Sodium [Senokot-S] 2 tablet PO BID tablet 07/05/18 Primary Care Physician: Adilson Mccall MD [Primary Care Provider] - Test Results: Test results from this visit will be discussed in further detail at your follow-up appointment, if applicable. Please Follow Up With: Physical therapy When: 07/07/18 @ 10:30 am Please Follow Up With: Darryl Gil PA-C When: 07/17/18 @ 3:00 pm 07/05/18 0714 <Electronically signed by Darryl Gil PA-C> Date Darryl Gil PA-C CC: Adilson Mccall MD CBC-COMPLETE BLOOD CNT Collected: 07/05/2018 Status: F Source: [place] NO DIFF 5:15 AM [facility] REPOSITORY TYPE CODE TESTS RESULT OUT OF RANGE REFERENCE UNITS LAB L100.1000 4.4-11.0 K/mm3 Normal WBC 9.5 LAB L100.1200 4.6-6.2 M/mm3 Low RBC 3.78 LAB L100.1300 13.0-16.5 g/dl Low HGB 12.4 LAB L100.1400 40-54 % Low HCT 36.0 LAB L100.1500 80-94 fL High MCV 95.2 LAB L100.1600 27.0-32.0 pg High MCH 32.8 LAB L100.1700 32-36 g/gl Normal MCHC 34.4 LAB L100.1810 11.6-14.6 % Normal RDW CV 12.3 LAB L100.1820 35.1-43.9 fl Normal RDW SD 41.8 LAB L100.1900 150-450 K/mm3 Normal PLT 191 LAB L100.2000 6.2-12.0 fl Normal MPV 9.8 Performed By: #### L100.0500 #### [facility] [address] [place], [address] BASIC METABOLIC Collected: 07/05/2018 Status: F Source: [place] PROFILE (BMP) 5:15 AM [facility] REPOSITORY TYPE CODE TESTS RESULT OUT OF RANGE REFERENCE UNITS LAB L501.0100 74-106 mg/dL High GLU 108 Result Comment: Fasting Glucose result from 100 to 125 mg/dL suggests IMPAIRED HOMEOSTASIS per A.D.A. criteria. Please note revised GLUCOSE reference range effective 2017. LAB L501.1000 7-18 mg/dL Normal BUN 17 LAB L501.1100 0.70-1.30 mg/dL Normal CREAT,SERUM 1.02 Result Comment: The validity of the calculated GFR AND GFRAA in patients over 70 years has not been determined. Clinical correlation is essential. LAB L501.1110 >60 mL/min Normal EST GFR 79 Result Comment: Non- GFR Calc LAB L501.1115 >60 mL/min Normal EST GFR - AA 95 Result Comment: GFR Calc LAB L501.1255 ml/min Normal Estimated CRCL 85.95 LAB L501.1300 10-20 RATIO Normal BUN/CRE 16.7 LAB L501.2200 8.5-10 mg/dL Low .1 CA 8.1 LAB L501.5300 136-14 mmol/L Normal 5 NA 141 LAB L501.5600 3.5-5. mmol/L Normal 1 K 4.1 LAB L501.5900 98-107 mmol/L High CL 109 LAB L501.6100 21.0-3 mmol/L Normal 2.0 CO2 26.0 LAB L501.6200 5-15 Normal GAP 6 Performed By: #### L500.2500 #### [facility] [address] [place], [address] OPERATIVE REPORT Observed: 07/04/2018 Status: F Source: [place] 8:42 AM [facility] REPOSITORY [facility] Medical Records Department [address] [place] [address] Operative Report 07/04/18 0839 MR#: [id number] Acct: [id number] Name: AUBREE STEVENS Rep #: [id number] : 1955 62 From: Olvin Chavez MD PCP: Adilson Mccall MD Status: ADM IN Y [id number] Report of Operation Date of Procedure: 07/04/18 Pre-Operative Diagnosis: Left knee primary osteoarthritis Post-Operative Diagnosis: Left knee primary osteoarthritis Surgery/Procedure Performed:: Left total knee replacement Description of Surgical Findings:: Stable knee with good patella tracking case management manager: Darryl Gil Type of Anesthesia:: Spinal Anesthesiologist: Eriberto Field Special Medications: 2 g Ancef, 1 g TXA at incision, 1 g TXA closure, 10 mg Decadron, joint cocktail (5 mg Duramorph, 30 mL of 0.5% Ropivicaine, 1000 units of epinephrine, 30 mg of Toradol) Specimen's removed: Bony cuts Estimated Blood Loss (mL): 75 Fluids Replaced: 1000 mL crystalloid Description of Procedure: Implants used: 1. Samson size 5 press-fit triathlon cruciate retaining distal femoral component 2. Samson size 6 press-fit tibial baseplate 3. Winder X3 11 mm CS polyethylene 4. Winder X3 35 mm asymmetric patella Brief history operative indications: 62-year-old m with history of left knee osteoarthritis with radiographic findings with loss of joint space, osteophyte formation and subchondral sclerosis. Failed conservative measures as mentioned in the H AND P. Discussion of total knee arthroplasty as well as risk and benefits were discussed the patient including but not limited to blood loss, DVTs, PEs, neurovascular damage, general risk of anesthesia including loss of life, and stiffness or instability were discussed with patient. Patient demonstrated understanding and was able to sign informed consent. Procedure: On the date of procedure patient's left lower extremity was marked in the preoperative area. The patient was then taken back to the operating room where the patient was placed on the table in the supine position. All bony prominences were identified a well-padded. Anesthesia assumed control of the C-spine and airway and remained controlled throughout the remainder of the procedure. A tourniquet was placed on the left upper thigh and the leg was prepped in a sterile fashion. The surgeon then scrubbed at this time .Upon reentering the room left lower extremity was draped in a standard orthopedic fashion. A timeout was then called and everyone agreed upon the side, the site, the procedure to be performed, patient's identity and antibiotics given. Esmarch bandage was used to exsanguinate the extremity and the tourniquet was placed up to 250 mmHg with the knee in flexion. A midline skin incision was made and sharp dissection was taken down through skin subcutaneous tissue and fat. The standard medial parapatellar incision was made and the patella was subluxed laterally. The standard deep MCL release was done and the fat pad was resected. Next our attention was directed to the femur. Navigation pins were placed, navigation was registered. The distal femoral cutting block was pinned into place and 10 mm of distal femur resection was completed. The distal femoral cut was verified with navigation. The knee was then placed in deep flexion in the standard [employer] sizing guide was used to place the femoral component in 3 external rotation based on the posterior condyles. A size 5 4-in-1 cutting block was selected and pinned into place. The anterior cut was then made and checked for notching. The subsequent anterior chamfer cuts, posterior condylar cuts and posterior chamfer cuts were made while ensuring the MCL and LCL were protected. Our attention was then turned to the tibia where the navigation pins were placed, navigation was registered. [employer] tibial cutting guide was used to make the appropriate tibial cut 90 degrees from the mechanical axis. Navigation was then used to verify the cut. A size 6 tibial base plate was selected. the knee was flexed to 90 degrees and the soft tissues and posterior osteophytes were removed from the joint. 40 cc of the periarticular injection was injected into the posterior medial corner of the joint. The appropriate trials were then placed on the femur and tibia. A trial polyethylene was trialed to ensure proper balancing and stability of the knee. Patella tracking, was then verified and corrected appropriately as needed. The appropriate tibial internal rotation was then marked with a bovie. Our attention was then directed to the patella. The patella was everted and a flat resection was made. The lug holes were drilled and the patella trial was placed. Patellar tracking was checked and deemed appropriate. Once we were happy lug holes were drilled for the femur and trial components were removed. Cement was mixed at this time and the tourniquet was let down the tibia was subluxed and pinned into place and the keel was punched and the canal was reamed. Final components were verified and opened, and cement was mixed in a vacuum. Samson Simplex cement was used. The wound was copiously irrigated with normal saline. When the cement was ready the press-fit components were impacted into place starting with the tibia, femur and finally the patella cemented into place. The trial poly component was placed and the knee was placed in full extension. All excess cement was removed in the process. Once the cement had cured the tracking, alignment and balance were verified and a size 11 mm polyethylene component was placed. Once the final components were placed the wound was copiously irrigated with normal saline solution and the periarticular injection was given. The wound was closed in a layer gurrola fashion using #1 vicryl interrupted sutures for the arthrotomy, 2-0 interrupted Vicryl suture for the subcuticular layer and belkis for final skin closure. A sterile compressive dressing was then placed. The patient was then awakened from anesthesia, transferred to the rprospect and transferred to the PACU for recovery. Post op plan DVT ppx: ASA 81mg, thigh high compression stockings Follow up: in office in 2 weeks for wound check PT: to start POD #0 at hospital, outpatient PT should be arranged. My physician business office assistant was a vital part of this case. He was important in appropriate retraction during the case, and protection of soft tissues during bony cuts. His intimate knowledge of the case and my steps aided in safe and expedient completion of the procedure as well as appropriate position of the leg during the case. He was also vital in assisting with closure under my direct supervision. Grafts/Implants Used: Winder triathlon press-fit total knee - Complications None - Admit VTE Documentation VTE Present on Admission: No VTE Mechan Device Prophylaxis: SCD's, Thigh High BRIDGETTE Hose VTE Pharm Prophylaxis ordered?: Yes 07/04/18 0842 <Electronically signed by Olvin Chavez MD> Date Olvin Chavez MD CC: Adilson Mccall MD; Olvin Chavez MD Signed KNEE 1 OR 2 VIEWS Observed: 07/04/2018 Status: F Source: [place] 6:30 AM [facility] REPOSITORY [facility] Imaging Services [address] [place] [address] Knee 1 or 2 Views MR#: [id number] Acct: [id number] Name: AUBREE STEVENS Rep #: [id number] : 1955 M 62 From: Giovanni Bowman MD PCP: Adilson Mccall MD Status: ADM IN Study: Knee 1 or 2 Views Date of Exam: 07/04/18 Exam# [id number] Ordering Dr: Olvin Chavez MD STUDY: X-RAY - LEFT KNEE REASON FOR EXAM: Male, 62 years old. Total knee replacement. TECHNIQUE: 2 view(s) of the knee. COMPARISON: None. FINDINGS: Normal visualized distal femur. Normal visualized proximal tibia and fibula. Normal proximal tibiofibular articulation. The patient is status post total knee replacement. There is good alignment. Postoperative soft tissue changes. RAD/Knee 1 or 2 Views IMPRESSION: Status post total knee replacement. There is good alignment. Postoperative soft tissue changes. Electronically Signed: Giovanni Bowman MD at 13:03 EDT Tel [phone], Service support , CC: Adilson Mccall MD; Olvin Chavez MD Flexo Operator: Signed STRESS REPORT Observed: 07/03/2018 Status: F Source: [place] 11:37 AM [facility] REPOSITORY [facility] Cardiovascular Services [address] [place] [address] MR#: [id number] Acct: [id number] Name: AUBREE STEVENS Rep #: [id number] : 1955 62 From: Shaggy Yeung MD Primary Care: Adilson Mccall MD Status: REG CLI Ordering Dr: Sex: M C Stress Test Report Pharmacologic myocardial perfusion stress test. 62-year-old man for preoperative cardiac evaluation. Stress testing. Resting EKG demonstrates sinus rhythm with rate of 69 bpm normal intervals and noted resting blood pressures 122/80 mmHg. 0.4 mg of regadenoson was infused per usual protocol followed by rapid intravenous saline flush injection continuous EKG monitoring was performed. Patient maintained sinus rhythm throughout the recording. At rest there were no ST or T-wave changes noted suggest abnormal flow reserve at peak infusion no ST or T-wave changes were noted suggest abnormal flow reserve. The resting blood pressure was 126/74 with a final blood pressure of the same. Myocardial perfusion protocol. 11.0 mCi of technetium 99m sestamibi was injected at rest. 0.4 mg of regadenoson was infused per usual protocol peak infusion 33.0 mCi of technetium 99m sestamibi was injected stress images were obtained stress and rest images were reconstructed and compared in the short axis vertical long horizontal long axis. Gated images were also obtained pre- Perfusion SPECT analysis: Review of the stress images demonstrate normal uptake of tracer noted in all areas of the myocardium. The resting images similarly demonstrate normal uptake of tracer noted in all areas of the myocardium. No areas of reversibility are noted suggest ischemia. No previous infarct is noted. Gated SPECT analysis: The gated ejection fraction is 51%. Conclusion: Normal pharmacologic myocardial perfusion stress test. Preserved ejection fraction. 07/03/18 1137 <Electronically signed by Shaggy Yeung MD> Date Shaggy Yeung MD CC: Shaggy Yeung MD; Adilson Mccall MD Date Dictated: 07/03/18 113 Date Transcribed: 07/03/18 113 Flexo Operator: CO Signed ECHOCARDIOGRAM COMPLETE Observed: 07/03/2018 Status: F Source: [place] 11:26 AM [facility] REPOSITORY [facility] Cardiovascular [place] [address] Echo Complete 07/03/18 1009 MR#: [id number] Acct: [id number] Name: RODNEYAUBREE Zafar Rep #: [id number] : 1955 62 From: Shaggy Yeung MD Attending Dr: Shaggy Yeung MD Status: REG CLI Ordering Dr: Shaggy Yeung MD Date: 07/03/18 Location: [facility] Sex: M C Admitted: Reason For Study: Previous Abnormal Study Procedure This was a 2D Doppler, Color Flow transthoracic echocardiogram. Exam performed in department. Left Ventricle Normal LV size. Left ventricular systolic function is normal. The estimated ejection fraction is 55 %. Stage 1 diastolic dysfunction. No regional wall motion abnormalities noted. Right Ventricle Normal RV size. Normal systolic function. Atria Normal left atrium. Normal right atrium. Patent foramen ovale. Mitral Valve Normal mitral valve. Tricuspid Valve Normal tricuspid valve. Aortic Valve Trisinus/trileaflet aortic valve. Pulmonic Valve Normal pulmonic valve. Great Vessels Moderately dilated aortic root. The pulmonary artery is normal size. Normal inferior vena cava. Pericardium/Pleural No pericardial effusion. Medication Performed a rapid injection of agitated mix of 9 cc saline and 1cc air to assess for atrial septal defect. MMode/2D Measurements AND Calculations LVIDd: 4.7 cm IVSd: 1.3 cm Ao root diam: 5.0 cm LVIDs: 3.7 cm LVPWd: 0.89 cm LA dimension: 3.9 cm RVDd: 3.2 cm FS: 21.2 % LAV(MOD-bp): 48.4 ml LAV(MOD-bp) Indexed: 22.4 ml/m2 LA A4 area: 15.4 cm2 RA A4 area: 19.0 cm2 LAV(MOD-sp2): 56.6 ml LAV(MOD-sp4): 40.2 ml Time Measurements MV dec time: 0.27 sec Doppler Measurements AND Calculations MV E max korey: 45.3 cm/sec Lat Peak E' Korey: 6.3 cm/sec Med Peak E' Korey: 5.4 cm/sec MV A max korey: 66.0 cm/sec E/E' lat: 7.2 E/E' med: 8.5 MV E/A: 0.69 Ao V2 max: 108.4 cm/sec AI max korey: 337.1 cm/sec LV V1 max: 97.2 cm/sec Ao max P.7 mmHg AI max P.4 mmHg LV V1 max P.8 mmHg Ao V2 mean: 73.0 cm/sec AI dec slope: 209.5 cm/sec2 LV V1 mean P.9 mmHg Ao mean P.5 mmHg AI P1/2t: 471.3 msec LV V1 mean: 63.0 cm/sec Ao V2 VTI: 22.3 cm LV V1 VTI: 17.5 cm PA V2 max: 88.6 cm/sec Interpretation Summary Normal LV size. Left ventricular systolic function is normal. The estimated ejection fraction is 55 %. Stage 1 diastolic dysfunction. Moderately dilated aortic root. Patent foramen ovale. Compared to the previous the aortic root is more dilated Ordering Physician: Shaggy Yeung Referring Physician: Adilson Mccall Performed By: Ha Kerr RCS 07/03/18 1125 Date Shaggy Yeung MD CC: Shaggy Yeung MD; Adilson Mccall MD Date Dictated: 07/03/18 1009 Date Transcribed: 07/03/18 1125 Flexo Operator: Signed CARDIOLOGY VISIT Observed: 06/28/2018 Status: F Source: [place] REPORT 3:03 PM [facility] REPOSITORY [facility] [address] [place] [address] OFFICE VISIT Date of Service: 06/28/18 MR#: [id number] Acct: [id number] Name: AUBREE STEVENS Rep #: [id number] : 1955 Provider: Shaggy Yeung MD Age/Sex: 62/M Location: [facility] Status: Signed HPI HPI Chief Complaint: Preoperative evaluation Details: AUBREE STEVENS, is a 62 M who presents to the office today for a preoperative evaluation for left total knee arthroplasty. He is a gentleman with a previous history of dizziness for which she was evaluated and it was unclear whether it was a cerebrovascular accident or not. At that time in 2017 as well he had an echocardiogram performed which demonstrated evidence of segmental wall motion abnormality involving the anterior wall. He says he was never called about the results and no follow-up was made. He was also noted to have a small PFO as well as a dilated aorta. He is denied any chest pain or shortness breath or paroxysmal nocturnal dyspnea pedal edema he has had no neck arm or jaw discomfort suggest angina. He has been on no medications per se. He also had a carotid ultrasound performed which did not demonstrate any significant abnormality. He is here for preoperative evaluation his last EKG performed on 06/22 demonstrated normal sinus rhythm with no acute changes. His physical exam here today demonstrates clear lung thomas regular rate and rhythm no pedal edema his blood pressure is normal. His previous echocardiogram and carotid studies were reviewed. Intake Vital Signs06/28/18 Height 6 ft 2 in 06/28/18 Weight: 198 lb 06/28/18 Body Mass Index (BMI) 25.4 06/28/18 Blood Pressure 138/78 06/28/18 Respiratory Rate 16 06/28/18 Pulse Rate 78 Intake Visit Reasons: pre-op for RTK 9- w/Kathy Allergies No Known Allergies Allergy (Verified 06/28/18 14:23) Medications Aspirin [Aspir-Low] 81 mg PO DAILY 06/22/18 [History Confirmed 06/22/18] Glucosamine Sulfate 500 mg PO DAILY 06/22/18 [History Confirmed 06/22/18] Ibuprofen 200 mg PO PRN PRN 06/22/18 [History Confirmed 06/22/18] PFSH Medical History Atrial septal defect (Chronic) Nonrheumatic aortic valve insufficiency (Chronic) Dilated aortic root (Chronic) Hyperlipidemia (Chronic) CVA (cerebral vascular accident) (Chronic) Obstructive sleep apnea (Chronic) Osteoarthritis (Chronic) Surgical History History of right hip replacement (Resolved) Family History Father Myocardial infarction from [place] age 60 Social History Smoking Status: Former smoker ROS Const Const: Negative for fatigue, weakness, difficulty sleeping, frequent falls, excessive sweating or headache(s) Eyes Eyes: Negative for loss of peripheral vision, transient loss of vision, blurry vision, tunnel vision or double vision ENT ENT: Negative for headache(s), dizziness, Nosebleed/epistaxis or balance problems Cardio Chest Pain: No Palpitations: No Edema: None Muscle aches with walking: None Resp Respiratory: Positive for SOB with activity; negative for SOB at rest, SOB orthopnea\SOB lying down, paroxysmal nocturnal dyspnea or Cough GI GI: Negative nausea, heartburn, black,tarry stools or vomiting : Negative for hematuria Musc Musc: Negative for balance problems, muscle aches/ myalgia, muscle weakness or joint pain Skin Skin: Negative non-healing lesions, unusual bruising or rash Neuro Neuro: Negative for weakness, frequent falls, headache(s), blurry vision, double vision, dizziness, lightheadedness, orthostatic symptoms, near syncope, syncope or lack of coordination Tera Hematologic/Lymphatic: Negative for easy bruising or easy bleeding Endo Endo: Negative for fatigue, excessive sweating or increased thirst/drinking Psych Psych: Negative for anxiety or depression Allergy Allergy/Immunology: Negative for hives, Negative for rash Cardiology Exam Const Appearance: cooperative, healthy appearing, well developed, well groomed and no acute distress Nutritional Appearance: well nourished and average body habitus Orientation: alert, awake and oriented x3 Head Head: normal to inspection, normocephalic and atraumatic Ears: hearing grossly normal bilaterally and external ears normal Nose: external nose normal, nasal mucous membranes and turbinates normal, nares normal, septum normal, no nasal discharge Face and Sinus: face symmetric Mouth: oral mucosae normal, tongue normal, oropharynx normal and moist mucous membranes Teeth and gingiva: dentition normal Throat: posterior oropharynx normal, tonsils normal and uvula midline Eyes General: appearance normal, both eyes and all related structures Eyelids: eyelids normal Conjunctivae: conjunctivae normal Pupils: PERRL, normal by confrontation and accommodation normal EOM: EOM intact bilaterally Neck Neck: normal visual inspection, trachea midline and no JVD JVD: +5 Carotids: normal carotid upstroke and bounding pulses Chest Chest inspection: normal inspection of the chest, symmetric chest movement and normal respiratory effort Auscultation: Bilateral: Clear to Auscultation Cardio Palpation: normal PMI Rate: regular rate Rhythm: regular rhythm Heart sounds: S1 normal, S2 normal and normal, physiologic split S2; negative rub, gallop or murmur GI GI: normal to inspection, soft, no hepatosplenomegaly and bowel sounds present Neuro General: alert, awake, oriented x3, no focal sensory deficit, gait normal and moves all extremities Skin Skin: no rashes or lesions noted Extremities Pulses: Normal: Right Femoral Pulse, Left Femoral Pulse, Right Dorsalis Pedis Pulse, Left Dorsalis Pedis Pulse, Right Posterior Tibial Pulse, Left Posterior Tibial Pulse, Right Radial Pulse, Left Radial Pulse Lower Extremity Edema: None: Bilateral Musculoskel Musculoskeletal: No joint tenderness Psych Psychological: normal affect Assessment AND Plan 1. Preop cardiovascular exam Z01.810 Plan He appears to be stable at this time but my recommendation is based on his previous abnormal echocardiogram that we will repeat this as well as obtain a pharmacologic myocardial perfusion scan to exclude any evidence of previous anterior infarct. If the above tests are normal then he can proceed with his surgery as previously scheduled. I will get back to you and will try and schedule this as soon as possible to expedite and not postpone his surgery. Thank you for allowing me to participate in his care. Orders Orders: Plan Detail Follow Up prn Coding Level of Care Code Off vis,new,level 4 Diagnoses Preop cardiovascular exam Z01.810 Coding Level of Care Code Off vis,new,level 4 Diagnoses Preop cardiovascular exam Z01.810 06/28/18 1503 <Electronically signed by Shaggy Yeung MD> Date Shaggy Yeung MD Cosigner Signature: Date (if applicable) CC: Adilson Mccall MD 12 LEAD ELECTROCARDIOGRAM Observed: 06/26/2018 Status: F Source: [place] 2:40 PM [facility] Cardiovascular Services [address] [place] [address] EKG - [facility] [place] 06/22/18 1447 MR#: [id number] Acct: [id number] Name: AUBREE STEVENS Rep #: [id number] : 1955 62 From: Shaggy Yeung MD Attending Dr: Olvin Chavez MD Status: PRE IN Ordering Dr: Olvin Chavez MD Date: 06/22/18 Location: [facility] [place] Sex: M C Admitted: Test Reason : Blood Pressure : / mmHG Vent. Rate : 091 BPM Atrial Rate : 091 BPM P-R Int : 188 ms QRS Dur : 082 ms QT Int : 358 ms P-R-T Axes : 035 -24 035 degrees QTc Int : 440 ms Normal sinus rhythm Normal ECG Confirmed by SHAGGY YEUNG MD ([id number]), photographic editor RAHEL KIRK ([id number]) on 06/26/2018 2:39:55 PM Referred By: Olvin Chavez Confirmed By:SHAGGY YEUNG MD 06/26/18 1439 Date Shaggy Yeung MD CC: Adilson Mccall MD; Olvin Chavez MD Date Dictated: 06/22/181446 Date Transcribed: 06/22/181446 Flexo Operator: Signed CBC W/DIFF, AUTOMATED Collected: 06/22/2018 Status: F Source: [place] 3:55 PM [facility] REPOSITORY TYPE CODE TESTS RESULT OUT OF RANGE REFERENCE UNITS LAB L100.1000 4.4-11.0 K/mm3 Normal WBC 6.5 LAB L100.1200 4.6-6.2 M/mm3 Low RBC 4.45 LAB L100.1300 13.0-16.5 g/dl Normal HGB 14.4 LAB L100.1400 40-54 % Normal HCT 42.4 LAB L100.1500 80-94 fL High MCV 95.3 LAB L100.1600 27.0-32.0 pg High MCH 32.4 LAB L100.1700 32-36 g/gl Normal MCHC 34.0 LAB L100.1810 11.6-14.6 % Normal RDW CV 12.8 LAB L100.1820 35.1-43.9 fl High RDW SD 44.5 LAB L100.1900 150-450 K/mm3 Normal PLT 230 LAB L100.2000 6.2-12.0 fl Normal MPV 9.9 LAB L100.2100 47-70 % Normal NEUT% 55.4 LAB L100.2200 19-41 % Normal LY% 33.2 LAB L100.2300 0-10 % Normal MONO% 8.0 LAB L100.2400 0-5 % Normal EO% 3.1 LAB L100.2500 0-1 % Normal BASO% 0.3 LAB L100.2550 0.0-0.9 % Normal IM GRAN % 0.000 Result Comment: IG% - Immature Granulocytes (promyelocytes, myelocytes and metamyelocytes) > 1% indicates that a LEFT SHIFT is Present. LAB L100.2620 2.0-7.7 X10 3/uL Normal Absolute Neut 3.6 LAB L100.2720 0.83-4.51 X10 3/ul Normal Absolute Lymph 2.15 Performed By: #### L100.0100, M100.651 #### [facility] [address] [place], [address] Observed: 06/22/2018 Status: F Source: [place] MRSA/SAID SCREEN 3:55 PM [facility] REPOSITORY MRSA/SAID SCRN S. AUREUS S. aureus Negative MRSA MRSA Negative Performed By: #### L100.0100, M100.651 #### [facility] [address] [place], [address] BASIC METABOLIC Collected: 06/22/2018 Status: F Source: [place] PROFILE (BMP) 3:55 PM [facility] REPOSITORY TYPE CODE TESTS RESULT OUT OF RANGE REFERENCE UNITS LAB L501.0100 74-106 mg/dL High GLU 169 Result Comment: Slight Lipemia, Result may be falsely increased. Fasting Glucose result greater than or equal to 126 mg/dL suggests DIABETES MELLITUS per A.D.A. criteria. Please note revised GLUCOSE reference range effective 2017. LAB L501.1000 7-18 mg/dL High BUN 24 Result Comment: Slight Lipemia, Result may be falsely increased. LAB L501.1100 0.70-1.30 mg/dL CREAT,SERUM Normal 1.14 Result Comment: Slight Lipemia, Result may be falsely increased. The validity of the calculated GFR AND GFRAA in patients over 70 years has not been determined. Clinical correlation is essential. LAB L501.1110 >60 mL/min Normal EST GFR 69 Result Comment: Non- GFR Calc LAB L501.1115 >60 mL/min Normal EST GFR - AA 84 Result Comment: GFR Calc LAB L501.1255 ml/min Normal Estimated CRCL 76.90 LAB L501.1300 10-20 RATIO High BUN/CRE 21.1 LAB L501.2200 8.5-10 mg/dL Low .1 CA 8.4 Result Comment: Slight Lipemia, Result may be falsely increased. LAB L501.5300 136-145 mmol/L Normal NA 144 LAB L501.5600 3.5-5.1 mmol/L Normal K 3.9 Result Comment: Slight Lipemia, Result may be falsely increased. LAB L501.5900 98-107 mmol/L High CL 111 LAB L501.6100 21.0-32.0 mmol/L Normal CO2 25.0 Result Comment: Slight Lipemia, Result may be falsely increased. LAB L501.6200 5-15 Normal GAP 8 Performed By: #### L500.2500 #### [facility] [address] [place], [address] HISTORY AND PHYSICAL Observed: 06/22/2018 Status: F Source: [place] EXAM 8:15 AM [facility] REPOSITORY [facility] Medical Records Department [address] [place] [address] History and Physical 06/22/18 0814 MR#: [id number] Acct: [id number] Name: AUBREE STEVENS Rep #: [id number] : 1955 62 From: Darryl Gil PA-C PCP: Adilson Mccall MD Status: PRE IN Y Location: [facility] [place] History and Physical DATE OF SURGERY: 07/04/2018 SCHEDULED PROCEDURE: Left total knee arthroplasty HISTORY OF PRESENT ILLNESS: This is a 62-year-old male whose been having ongoing pain in his left knee for the past 10 years. Patient states his pain is constant and aching. He has increased pain going up and down stairs. Patient also has increased pain with prolonged walking. Pain is primarily over the medial joint line. Patient has difficult time with activities of daily living that requires walking. He has stumbled secondary to his left knee pain. Patient has tried conservative measures consisting of rest and previous cortisone injection with minimal relief. She has been on oral medications consisting of Advil, Aleve, Tylenol with minimal relief. Patient denies previous surgeries on the left knee. He has tried a brace without any significant relief. After failing conservative measures and discussing all treatment options with Dr. Olvin Chavez, the patient would like proceed with a left total knee arthroplasty. Patient currently denies any chest pain, shortness of breath, fevers chills, or recent infections. Patient will be getting surgical clearance from his primary care physician. He only lists hypercholesterolemia as a medical problem. REVIEW OF SYSTEMS: ROS: Const: Denies change in appetite, fever,or weight change. CV: Denies chest pain, heart murmur and irregular heartbeat. Resp: Denies cough, pneumonia, SOB, tuberculosis and wheezing. GI: Denies constipation, diarrhea, difficulty swallowing, heartburn, nausea, bloody stools and vomiting. : Urinary: denies incontinence. Musculo: Reports trouble walking and weakness, but denies leg swelling and limp. Skin: Denies Raynaud's, history of shingles and tattoo. Neuro: Denies ambulatory dysfunction, dizziness, numbness/tingling and tremor. Psych: Denies anxiety, insomnia and stress. Tera/Lymph: Denies anemia, bleeding/bruising tendency and past transfusion. Reviewed, no changes. PAST MEDICAL HISTORY: Advance Care Plan: Other Directive, P.O.A. Effective Date: 10/28/2017 PMH: Medical Problems: Hypercholesterolemia Accidents: Fracture - RT ARM Surgical Hx: Hip Replacement Rt - AISHA SOOD Anesthesia Complications: None Assistive Devices: Glasses Reviewed, no changes. SOCIAL HISTORY: SH: Marital: .Occupation: Currently Working - [employer].Work Status: Currently Working.Hand Dominance: Right-handed. Personal Habits: Cigarette Use: Former Cigarette Smoker.Alcohol: Occasionally.Drug Use: Denies Use.Enjoy Exercising: Never Exercises. Reviewed, no changes. VITALS: Ht: 73 Wt: 199lb Wt k.266 BMI: 26.3 BP: 124/82 T: 98.0 T: 36.7C ALLERGIES: No Known Drug Allergy MEDICATIONS: MS Contin 15 mg 1 by mouth every 12 hours, Oxycodone HCL 5 mg 1-2 tab by mouth every 4 hours, Meloxicam 7.5 mg 1 by mouth twice a day with food, Promethazine HCL 12.5 mg 1-2 tablets by mouth every 6 hours, Famotidine 20 mg 1 by mouth every day, Aspir-81 81 mg 1 by mouth every day, Glucosamine 500 mg 1po bid, Advil 200 mg as needed, Ibuprofen 200 mg 2 tablets by mouth for pain as needed PRE-OP EXAM: General appearance:NORMAL Other: Eyes: Conjunctivae and lids: NORMAL Pupils: ERR Ears, Nose, Mouth, and Throat: NORMAL Other: Inspection of lips, teeth and gums: NORMAL Other: Neck: Examination of neck: no masses noted. Respiratory: Assessment of respiratory effort: NORMAL Other: Auscultation of lungs: clear to auscultation no wheezes, rhonchi or rales. Cardiovascular: Auscultation of heart: regular rate and rhythm, no murmurs, gallops or rubs. Exam of carotid arteries: NORMAL Other: Gastrointestinal: Exam of abdomen: soft, nontender, nondistended bowel sounds present. PHYSICAL EXAMINATION: Patient does walk with antalgic gait. Patient has tenderness to palpation over the medial joint line. Range of motion left knee lacks 5 of extension to 120 of flexion. Positive crepitus upon range of motion. Patient does have varus alignment. Sensation intact to light touch. IMAGING STUDIES: X-rays of the left knee were obtained on June 02, 2018 which does reveal varus alignment with medial joint space narrowing, subchondral sclerosis, and osteophyte formation consistent with severe osteoarthritis. IMPRESSION: 1. Severe left knee osteoarthritis with varus alignment 2. Hypercholesterolemia PLAN: Dr. Cahvez did discuss and review with the patient all treatment options including surgical versus nonsurgical options. Patient does wish to proceed with the above-stated procedure. Potential risks, benefits, and complications of the procedure were discussed in detail including but not limited to , infection, nerve and blood vessel damage, persistent pain, numbness, tingling, paresthesias, blood clot, pulmonary embolism, and requirement for possible further surgery. The patient expressed full understanding and has no further questions for the doctor. Patient does agree to proceed with the above-stated procedure and has signed the surgery consent form. ___ I have re-examined the patient. There are no clinical changes since date of exam. ___ See progress notes for changes. ___ Dictated on admission Date: Time: Signature: 06/22/18 0815 <Electronically signed by Darryl Gil PA-C> Date Darryl Gil PA-C Cosigner Signature: Date (if applicable) CC: Adilson Mccall MD; Darryl DEVLIN Signed ALLERGIES ALLERGIES DATE TYPE / CODE NAME / CODE REACTION SEVERITY SOURCE 06/28/2018 Drug No Known Unknown [place] Allergy/416 Allergies/[id number] [facility] 685610([place] [address](RXNORM) [facility] ED CT) Repository Drug/918424 No Known Muslim 003(SNOMED Allergies [facility] CT) System Repository Drug/384816 No Known Muslim 003(SNOMED Medication [facility]) Allergies System Repository ENCOUNTERS ENCOUNTERS ADMIT/DISCHARGE ACCOUNT NUMBER ADMITTING ENCOUNTER LOCATION SOURCE CLASS 09/26/2018/09/26/20 [id number] Ambulatory [facility] [place] [facility] 09/21/2018 [id number] Ambulatory [facility] ing:CT Repository 09/19/2018/09/19/20 [id number] Ambulatory Medical [address] [place] [facility] 07/04/2018/07/05/20 [id number] [place] Ambulatory [facility] 18 [facility] ing:ZG2Eoel: Repository [id number]: 1 07/03/2018 [id number] Ambulatory [facility] ing:CVS Repository 07/03/2018 [id number] Ambulatory BMSBuilding:W [facility] Repository 06/28/2018/06/28/20 [id number] Ambulatory [facility]:B [place] Repository 06/27/2018 [id number] [facility] 06/22/2018 [id number] Ambulatory BMSBuilding:W [facility] Repository PAYERS PAYERS ENCOUNTER GUARANTOR PAYER SUBSCRIBER SOURCE 09/26/2018 AUBREE Foster DARIEN: Insurance:[facility] RODNEYDOB: [facility] [id number] [id number] Number: Effective [address] [place] [address] Repository [address]Fna: Date:2018-09-19 [phone]: [id number] (HP) Name:CD:[id number] O (HP)Tel: 419) [address], [phone] ([place]) [place] [address]RH: 09/21/2018 AUBREE E Primary AUBREE E [place] [id number] [address] Insurance:MEDICAL BUZZARDDOB: [address] [id number] Number: Repository [address]Rty: (749) [id number] [phone] (HP) Date:8580-92-28KB [address] [place] [phone]: 09/21/2018 Secondary NOT GIVENUNK Chaitanya Insurance:SELF PAY [facility] Number: Effective Repository Date:2018-07-10 09/19/2018 AUBREE E Primary AUBREE E Muslim BUZZARDDOB: Insurance:1500 BUZZARDDOB: [facility] [id number] [id number] Number: Effective [address] [place] [address] Repository [address]Hkp: Date:2018-09-19 [phone]: [id number] (HP) Name:CD:[id number] O (HP)Tel: 419) [address] [address]CV[address], [phone] ([place]) [place] [address]RP: 07/04/2018 AUBREE E Primary AUBREE E [place] [id number] [address] Insurance:MEDICAL BUZZARDDOB: [facility] [id number] [place] Number: Repository [address]Pdq: [phone]) [id number] [phone] () Date:7099-60-17SK [address], [place] [address]ZH: 07/04/2018 Secondary NOT GIVENUNK Chaitanya Insurance:SELF PAY [facility] Number: Effective Repository Date:2018-06-02 07/03/2018 AUBREE Stephen Primary Insurance:MED AUBREE Stephen Chaitanya [id number] CR MUTUAL TPAPolicy BUZZARDDOB: [facility] [address] Number: [id number] [id number] Repository [address]Zpf: ([phone]) Date:4193-97-22EA [phone] () [place], [place] [address]TS: CHECK WEBSITE 07/03/2018 Secondary NOT GIVENUNK Chaitanya Insurance:SELF PAY [facility] Number: Effective Repository Date:2018-06-28 07/03/2018 AUBREE Stephen Primary Insurance:MED AUBREE Stephen [place] [id number] CR [facility]UAL [facility] BUZZARDDOB: [facility] [address] Number: [id number] [id number] Repository [address]Hpj: ([phone]) Date:[id number] [phone] () [place], [place] [phone]: CHECK WEBSITE 07/03/2018 Secondary NOT GIVENUNK [place] Insurance:SELF PAY [facility] Number: Effective Repository Date:2018-07-03 06/28/2018 AUBREE Stephen Primary AUBREE Stephen Chaitanya [id number] Insurance:MUTUAL BUZZARDDOB: [facility] [id number] [address] E[address] Number: Repository [address] [place] [address] [id number] [id number]: (419) Date:[id number] [phone] () [address]UGJCJDMLA, [place] [phone]: 06/28/2018 Secondary NOT GIVENUNK Chaitanya Insurance:SELF PAY [facility] Number: Effective Repository Date:2018-06-28 06/27/2018 AUBREE Stephen Primary NOT GIVENUNK [place] [id number] Insurance:SELF PAY [facility] [place] [facility] [address] Number: Effective Repository [address] [place] [address] Date:2018-06-27 [id number]: () 06/22/2018 AUBREE [id number] Insurance:MEDICAL BUZZARDDOB: [facility] [address] [facility] [id number] Number: Repository [address]Ryx: [phone]) [id number] [phone] () Date:0949-18-73QS [address] [place] [phone]: 06/22/2018 Secondary NOT GIVENLUKE Tavares Insurance:SELF PAY [facility] Number: Effective Repository Date:2018-06-22
== END ==
PROVIDERS: Family Provider Family Medicine; PCP Family Medicine; Referring Provider Internal Medicine Cardiovascular Disease; Visit Provider Internal Medicine Cardiovascular Disease
DX: I35.1 Nonrheumatic aortic (valve) insufficiency (principal); I77.810 Thoracic aortic ectasia; E78.5 Hyperlipidemia, unspecified; Q21.1 Atrial septal defect
CPT/HCPCS: 71275; Q9967

== ENCOUNTER → 2019-08-30 11:48 | Outpatient (CLI) | payer OTHER, SELFPAY ==
[2019-08-30 12:52] LABS: Synovial Fld Mononuclear WBC % 13.8 %; Synovial Fld Polynuclear WBC # 12.958 10^3/uL; Synovial Fld Polynuclear WBC % 86.2 %
[2019-08-30 13:00] LABS: RBC /Synovial Fluid 0.017 10^6/uL (0)
[2019-08-30 13:57] LABS: AUTO B FLUID DILUENT BKGD CT WBC <0.1 RBC <0.01 (W<.1,R<.01); Viscosity / Synovial Fluid Sl. Viscous (HIGH)
[2019-08-30 13:58] LABS: Appearance /Synovial Fluid Cloudy (CLEAR); Body Fluid QC Type(s) BF1Q; Color / Synovial Fluid Pink (Pale Yellow)
[2019-08-30 14:16] LABS: Lymph 4 %; Neutrophil 96 % (0-25)
[2019-08-31 10:51] LABS: Pathologist Comment Reviewed
== END ==
PROVIDERS: Family Provider Family Medicine; PCP Family Medicine; Referring Provider Specialist; Visit Provider Specialist
DX: M25.462 Effusion, left knee (principal); Z96.652 Presence of left artificial knee joint
CPT/HCPCS: 87015; 87070; 87075; 87101; 87116; 87205; 87206; 89050; 89051

== ENCOUNTER 2019-09-26 10:13 | Inpatient (IN) | payer OTHER, SELFPAY ==
[2019-09-17 14:47] VITALS: BP 130/72; PULSE 100; RESP 18; TEMP 37.6; O2SAT 95; BMI 26.8
[2019-09-17 15:45] LABS: Absolute Lymphocyte Count 2.27 X10^3/uL (0.83-4.51); Absolute Neutrophil Count 4.4 X10^3/uL (2.0-7.7); Basophil# 0.04 X10^3/uL; Basophil% 0.5 % (0-1); Eosinophil# 0.18 X10^3/uL; Eosinophils% 2.4 % (0-5); Hematocrit 45.7 % (40-54); Hemoglobin 14.9 g/dL (13.0-16.5); Lymphocyte # 2.27 X10^3/ul (4.0); Lymphocyte % 29.7 % (19-41); Mean Corp Hgb Conc 32.6 g/dL (32-36); Mean Platelet Vol. 9.6 fl (6.2-12.0); Monocyte# 0.69 X10^3/uL; NRBC Flagged by Analyzer 0 % (0-5); Neutrophil # 4.44 X10^3/uL (2.7-7.7); Neutrophil % 58.1 % (47-70); Platelet Count 315 K/mm3 (150-450); RBC Distribution Width CV 13.2 % (11.6-14.6); RBC Distribution Width SD 44.3 fl (35.1-43.9); Red Blood Count 4.97 M/mm3 (4.6-6.2); White Blood Count 7.6 K/mm3 (4.4-11.0)
[2019-09-17 16:08] LABS: Anion Gap 6 (5-15); BUN 23 mg/dL (7-18); Calcium,Total 9.1 mg/dL (8.5-10.1); Chloride 107 mmol/L (98-107); Creatinine, Serum 1.15 mg/dL (0.70-1.30); EST Glomerular Filtration Rate 68 mL/min (>60); Est Glom Filt Rate - Afr Amer 83 mL/min (>60); Estimated Creatinine Clearance 76.44 ml/min; Glucose 92 mg/dL (74-106); Potassium 4.1 mmol/L (3.5-5.1); Sodium Level 139 mmol/L (136-145)
--- NOTE | 2019-09-17 16:22 | SDCEKG_ITS ---
Test Reason : Blood Pressure : / mmHG Vent. Rate : 086 BPM Atrial Rate : 086 BPM P-R Int : 186 ms QRS Dur : 084 ms QT Int : 356 ms P-R-T Axes : 040 -24 036 degrees QTc Int : 426 ms Normal sinus rhythm Possible Left atrial enlargement Borderline ECG Confirmed by NICK POLO, CRYSTAL ([id number]), department editor VIDAL MINER ([id number]) on 09/24/2019 11:52:44 AM Referred By: MARY KAY DUTTAMER Confirmed By:CRYSTAL ROMERO MD
--- NOTE | 2019-09-18 16:49 | HP.PCM_ITS ---
History and Physical History and Physical Patient Name: Samy Walker : 1955 From: GERONIMO FISHER PA-C DATE OF SURGERY: 09/26/2019 SCHEDULED PROCEDURE: removal left total knee arthroplasty with placement of antibiotic spacer HISTORY OF PRESENT ILLNESS: Preoperative history and physical exam was performed on September 17, 2019. This is a 64-year-old male who is been having swelling with the left knee. Patient did develop a callus medial to the tibial tubercle approximately 3 months ago which became unroofed and started to drain. Patient denies any previous fevers, chills or night sweats. There is been no major medical problems in the past year. No recent infections or sicknesses over the last year. Patient underwent a previous left total knee arthroplasty on July 04, 2018. Patient underwent a synovasure aspiration on August 31, 2019 which was positive. After discussion with Dr. Olvin Chavez it was decided to proceed with left knee removal with antibiotic spacer due to sinus tract draining. Patient will proceed with a two-stage revision. Patient currently denies any chest pain, shortness of breath, fevers chills, recent infections. He does have a history of hypercholesterolemia and vertigo. Patient was worked up prior to his left total knee arthroplasty in which he saw Dr. Yeung and had stress test and echocardiogram on July 03, 2018. Patient was cleared for surgery. There is been no new resent episodes of medical problems. After discussion with Dr. Olvin Chavez he will proceed with a left total knee removal with placement of antibiotic spacer. We will be obtaining surgical clearance from the primary care physician Dr. Cho. REVIEW OF SYSTEMS: ROS: Const: Denies change in appetite, fever,or weight change. CV: Denies chest pain, heart murmur and irregular heartbeat. Resp: Denies cough, pneumonia, SOB, tuberculosis and wheezing. GI: Denies constipation, diarrhea, difficulty swallowing, heartburn, nausea, bloody stools and vomiting. : Urinary: denies incontinence. Musculo: Reports trouble walking and weakness, but denies leg swelling and limp. Skin: Denies Raynaud's, history of shingles and tattoo. Neuro: Denies ambulatory dysfunction, dizziness, numbness/tingling and tremor. Psych: Denies anxiety, insomnia and stress. Tera/Lymph: Denies anemia, bleeding/bruising tendency and past transfusion. Reviewed, no changes. PAST MEDICAL HISTORY: Advance Care Plan: Other Directive, P.O.A. Effective Date: 10/28/2017 PMH: Medical Problems: Hypercholesterolemia Accidents: Fracture - RT ARM Surgical Hx: Hip Replacement Rt - AISHA SOOD LT TKR - (07/04/2018) SAW @ [facility] Anesthesia Complications: None Assistive Devices: Glasses Reviewed, no changes. SOCIAL HISTORY: SH: Marital: .Occupation: Not Currently Working.Work Status: Not Working Currently.Hand Dominance: Right-handed. Personal Habits: Cigarette Use: Former Cigarette Smoker.Alcohol: Occasionally.Drug Use: Denies Use.Enjoy Exercising: Never Exercises. Reviewed and updated. VITALS: Ht: 73 Wt: 204lb Wt k.534 BMI: 26.9 BP: 116/76 Pulse: 68 Resp: 16 T: 97.6 T: 36.4C ALLERGIES: No Known Drug Allergy MEDICATIONS: No Active Medications PRE-OP EXAM: General appearance:NORMAL Other: Eyes: Conjunctivae and lids: NORMAL Pupils: ERR Ears, Nose, Mouth, and Throat: NORMAL Other: Inspection of lips, teeth and gums: NORMAL Other: Neck: Examination of neck: no masses noted. Respiratory: Assessment of respiratory effort: NORMAL Other: Auscultation of lungs: clear to auscultation no wheezes, rhonchi or rales. Cardiovascular: Auscultation of heart: regular rate and rhythm, no murmurs, gallops or rubs. Gastrointestinal: Exam of abdomen: soft, nontender, nondistended bowel sounds present. PHYSICAL EXAMINATION: On exam patient does walk with a slight antalgic gait. Left knee there is a 1 cm area of ulceration medial to the tibial tubercle. Range of motion: 0 of extension to 105 flexion. Stable to varus and valgus stress test. Sensation intact to light touch. IMAGING STUDIES: Previous x-rays of left knee reveal well aligned total knee arthroplasty with progressive lucencies under the medial tibial plateau and around the femoral posterior and anterior flanges consistent with progressive loosening. IMPRESSION: 1. Painful left total knee with sinus tract/drainage insistent with infection 2. Hypercholesterolemia 3. History of vertigo PLAN: Dr. Olvin Chavez did discuss and review with the patient all treatment options including surgical versus nonsurgical options. Patient does wish to proceed with the above-stated procedure. Potential risks, benefits, and complications of the procedure were discussed in detail including but not limited to , infection, nerve and blood vessel damage, persistent pain, numbness, tingling, paresthesias, blood clot, pulmonary embolism, and requirement for possible further surgery. The patient expressed full understanding and has no further questions for the doctor. Patient does agree to proceed with the above-stated procedure and has signed the surgery consent form. This dictation was created using voice recognition software. Phonetic and/or grammatical errors may exist. ___ I have re-examined the patient. There are no clinical changes since date of exam. ___ See progress notes for changes. ___ Dictated on admission Date: Time: Signature:
[2019-09-26] VITALS (10 sets, daily range): BP systolic 109–133; BP diastolic 60–86; PULSE 69–86; RESP 16; TEMP 36.3–36.9; O2SAT 94–100; BMI 26.8
[2019-09-26] MEDS: Magnesium Sulfate 4gm/100mL 4 GM/100 ML IV.SOLN. IV (10:50)
[2019-09-26] MEDS: Gabapentin 600 MG Tablet PO (10:50)
[2019-09-26] MEDS: Scopolamine 1mg/72hr Patch 1 PATCH TRANSDERM. (10:50)
[2019-09-26] MEDS: Acetaminophen 500 MG Tablet 1000 MG PO ×2 (10:50→21:59)
[2019-09-26] MEDS: Lactated Ringers 1,000 ML 100 ML IV ×2 (10:52→21:58)
[2019-09-26 13:26] LABS: Bedside Glucose 76 mg/dL (70-110)
[2019-09-26] MEDS: Cefazolin 2 GM in 0.9% Normal Saline 100 ML IV (13:47)
[2019-09-26] MEDS: Cefazolin 1 GM/5 ML Vial 2 GM OPERA.SITE (14:03)
[2019-09-26] MEDS: Vancomycin IV 1,000 MG/20 ML Vial 6000 MG OPERA.SITE (14:06)
[2019-09-26] MEDS: Scopolamine 1mg/72hr Patch 1 PATCH TD (14:45)
[2019-09-26] MEDS: Lactated Ringers 1,000 ML 999 ML IV (14:45)
--- NOTE | 2019-09-26 14:47 | PCM.OPRPT ---
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 Placement of nonbiodegradable antibiotic delivery system left knee. Sinus tract incision left knee Description of Surgical Findings:: Sinus tract went down to the bone there was significant bone tunneling and loss with overlying membrane which was debrided aggressively. intelligence manager: Iftikhar Gil intelligence manager: Lyly Kaufman Anesthesiologist: Mt Castaneda Special Medications: 2 g Ancef, 1 g TXA at incision, 1 g TXA closure, 10 mg Decadron, joint cocktail (5 mg Duramorph, 30 mL of 0.5% Ropivicaine, 1000 units of epinephrine, 30 mg of Toradol), vancomycin 15 mg/kg. Antibiotics were given after cultures were obtained. Specimen's removed: 3 separate specimens were sent to microbiology Estimated Blood Loss (mL): 150 Fluids Replaced: 1500 mL crystalloid Description of Procedure: Implants used: Femur: 5 CR Tibia: 5 CR, 13 mm thickness Brief history operative indications: 64-year-old m with total knee replacement in 2018. Patient demonstrated signs of infection including draining sinus and positive work-up for infection. After discussing treatment for infection we agreed on a two-stage revision with explantation and placement of nonbiodegradable antibiotic delivery system with excision of the cyst which had risks which include but not limited to blood loss, DVTs, PEs, nervous damage, infection, the risk of anesthesia. Patient demonstrate understanding was able to sign informed consent. Medical clearance was obtained. Procedure: On the date of procedure patient's l lower extremity was marked in the preoperative area. The patient was then taken back to the operating room where the patient was placed on the table in the supine position. All bony prominences were identified a well-padded. Anesthesia assumed control of the C-spine and airway and remained controlled throughout the remainder of the procedure. A tourniquet was placed on the l upper thigh and the leg was prepped in a sterile fashion. The surgeon then scrubbed at this time. Upon reentering the room l lower extremity was draped in a standard orthopedic fashion. A timeout was then called and everyone agreed upon the side, the site, the procedure to be performed, patient's identity and antibiotics given. An Esmarch bandage was used to exsanguinate the extremity and the tourniquet was placed up to 250 mmHg with the knee in flexion. A midline skin incision was made using the previous incision and extending it proximally and distally to identify normal tissue planes. Distally there was a 1 cm x 1 cm opening from the sinus. This tracked down to the joint. This was excised on approach and debrided down to the joint. The sinus tract was sent for culture. Medial and lateral flaps were developed appropriate releases. The standard medial parapatellar arthrotomy was made and the patella was subluxed laterally. At this time an aggressive synovectomy was performed re-creating the medial gutter first, then the suprapatellar pouch than the lateral gutter. Once this was completed the knee was flexed up an osteotome was used to remove the tibial polyethylene. The remainder of the synovium was debrided. The standard deep MCL release was done and the patella scar pad was resected and lateral releases were performed. Next our attention was directed to the femur. Where flexible osteotomes and TPS saw were used to break up the implant bone interface. This was done both medially and laterally. After this a bone tamp was used to remove the femur component from the end of the bone. This was done with minimal bone loss. At this time attention was now directed towards the proximal tibia. Flexible osteotome and TPS saw were then used to break up the proximal tibia implant interface and stacked osteotomes were used to remove the tibial implant. This was done with minimal bone loss. At this time we then directed our attention to the patella. The patella was everted and TPS saw was used to remove the patella. We then used a bur to remove the remaining pegs. Once this was done the canals for both the femur and the tibial were reamed to 16 mm. On the back table my temporary office assistant then mixed cement with one third of the antibiotics and it using half batch of cement to create 16mm dowels for both the femur and the tibia. These were then allowed to set on the back table. While this was occurring our attention was directed towards the distal femur and proximal tibia where all membrane was debrided and a bur was used to remove membrane down to bone. Due to the previous bone loss and overall integrity of the previous cut we elected not to make a cleanup cut but to debride using the bur. Once this was completed the appropriate trials were then placed on the femur and tibia. A trial polyethylene was trialed to ensure proper balancing and stability of the knee. Patella tracking, was then verified and corrected appropriately as needed. Final components were verified and opened, 6 liters of normal saline were irrigated throughout the joint under low-pressure lavage. Tourniquet was let down and hemostasis was obtained. Cement was then hand mixed with the remainder of the antibiotics. We did use a bur to bur up the back portion of the polyethylene component for cement interdigitation. When the cement was ready the antibiotic cement dowels were placed in the tibia and femoral canals was placed the components were cemented into place starting with the tibia, femur. The trial poly component was placed and the knee was placed in full extension. All excess cement was removed in the process. Once the cement had cured the tracking, alignment and balance were verified. Once the final components were placed a chlorhexidine lavage was used and the wound was copiously irrigated with normal saline solution and the remainder of the periarticular injection was given. The wound was closed in a layer gurrola fashion using #1 vicryl interrupted sutures for the arthrotomy, distally the arthrotomy had an opening which we closed in a layer gurrola fashion due to the previous sinus which was excised on approach. 2-0 interrupted Vicryl for the subcuticular layer and nylon sutures for final skin closure. A sterile compressive dressing was then placed. The patient was then awakened from anesthesia, transferred to the [facility] and transferred to the PACU for recovery. Post op plan DVT ppx: ASA 81mg BID, thigh high compression stockings Follow up: in office in 2 weeks for wound check, infectious diseases been consulted. Patient will be started on Ancef and vancomycin until consult can be completed. PT: to start POD #0 at hospital, outpatient PT should be arranged. My physician temporary office assistant was a vital part of this case. He was important in appropriate retraction during the case, and protection of soft tissues during bony cuts. His intimate knowledge of the case and my steps aided in safe and expedient completion of the procedure as well as appropriate position of the leg during the case. He was also vital in assisting with closure under my direct supervision. - Complications No intraoperative complications - Admit VTE Documentation VTE Present on Admission: No VTE Mechan Device Prophylaxis: SCD's, Thigh High BRIDGETTE Hose VTE Pharm Prophylaxis ordered?: Yes
--- NOTE | 2019-09-26 15:50 | RAD_ITS ---
STUDY: X-RAY - LEFT KNEE REASON FOR EXAM: Male, 64 years old. Status post surgery TECHNIQUE: 2 view(s) of the knee. COMPARISON: 07/04/2018 FINDINGS: No destructive bony process. Normal proximal tibiofibular articulation. There has been interval removal of tibial knee replacement component. Linear density within the femoral and tibial shafts now present. There is soft tissue swelling. Surgical drainage catheter noted. RAD/Knee 1 or 2 Views IMPRESSION: 1. Gross alignment following surgery. Removal of tibial component knee arthroplasty. Electronically Signed: Royce Monteiro MD (Brooks) at 16:20 EST , Service support ,
[2019-09-26] MEDS: Lactated Ringers 1,000 ML 125 ML IV (16:30)
[2019-09-26] MEDS: Morphine 2 MG/ML Syringe IV (17:34)
[2019-09-26] MEDS: Morphine 4 MG/ML Syringe IV (19:59)
[2019-09-26] MEDS: Cefazolin 1 GM/50 ML BAG IV (21:58)
[2019-09-26] MEDS: Aspirin 81 MG TAB.CHEW PO (21:59)
[2019-09-26] MEDS: Senna/Docusate Sodium 1 Tablet 2 TABLET PO (22:00)
[2019-09-26] MEDS: oxyCODONE 5 MG Tablet PO (22:01)
[2019-09-27] MEDS: Morphine 2 MG/ML Syringe IV (02:29)
[2019-09-27 02:54] VITALS: BP 100/61; PULSE 86; RESP 16; TEMP 37.2; O2SAT 97
[2019-09-27] MEDS: oxyCODONE 5 MG Tablet PO ×4 (03:31→16:09)
[2019-09-27 06:10] LABS: Hematocrit 29.6 % (40-54); Hemoglobin 9.7 g/dL (13.0-16.5); Mean Corp Hgb Conc 32.8 g/dL (32-36); Mean Corpuscular Hgb 30.3 pg (27.0-32.0); Mean Corpuscular Volume 92.5 fL (80-94); Mean Platelet Vol. 9.6 fl (6.2-12.0); Platelet Count 226 K/mm3 (150-450); RBC Distribution Width CV 12.8 % (11.6-14.6); RBC Distribution Width SD 43.4 fl (35.1-43.9); White Blood Count 8.5 K/mm3 (4.4-11.0)
[2019-09-27] MEDS: Cefazolin 1 GM/50 ML BAG IV (06:17)
[2019-09-27] MEDS: Acetaminophen 500 MG Tablet 1000 MG PO ×3 (06:18→21:37)
[2019-09-27] MEDS: Morphine 4 MG/ML Syringe IV (06:20)
[2019-09-27 06:42] LABS: Anion Gap 4 (5-15); BUN 17 mg/dL (7-18); BUN/Creat Ratio 20.6 RATIO (10-20); Calcium,Total 7.5 mg/dL (8.5-10.1); Chloride 109 mmol/L (98-107); Creatinine, Serum 0.82 mg/dL (0.70-1.30); EST Glomerular Filtration Rate 100 mL/min (>60); Est Glom Filt Rate - Afr Amer 121 mL/min (>60); Estimated Creatinine Clearance 107.21 ml/min; Glucose 133 mg/dL (74-106); Potassium 4.1 mmol/L (3.5-5.1); Sodium Level 138 mmol/L (136-145)
[2019-09-27] MEDS: Famotidine 20 MG Tablet PO (07:45)
[2019-09-27] MEDS: Aspirin 81 MG TAB.CHEW PO ×2 (07:45→16:10)
[2019-09-27] MEDS: Senna/Docusate Sodium 1 Tablet 2 TABLET PO ×2 (07:46→21:38)
[2019-09-27] MEDS: Ensure Surgery 237 ML LIQUID PO ×3 (07:47→16:09)
[2019-09-27 08:00] VITALS: BP 109/63; PULSE 91; RESP 16; TEMP 37; O2SAT 95
--- NOTE | 2019-09-27 09:38 | PN.ORTHO_ITS ---
Subjective: The patient was sitting in bed upon examination. Patient denies any chest pain, shortness of breath, dizziness, lightheadedness, nausea or vomiting, or calf pain. Pain has not been controlled on medications. No adverse overnight events. Patient has been on Tylenol, oxycodone, morphine IV. Patient continues to complain of significant pain with his left postoperative knee. Objective: Vital signs stable and afebrile. Patient is able to plantarflex and dorsiflex actively. Sensation is intact to light touch to saphenous, sural, superficial and deep peroneal, and tibial distribution. Dressing is clean dry and intact. Hemovac drain in place: Mild output in Hemovac canister. There is been 195 mL output currently. Plan will be for removal of Hemovac drain tomorrow Immobilizer was adjusted to fit appropriately. Negative Homans bilaterally, negative signs and symptoms of DVT. - Physical Exam Vitals/I&O's: Vital Signs Temp Pulse Resp BP Pulse Ox 98.6 F 91 16 109/63 95 09/27/19 08:00 09/27/19 08:00 09/27/19 08:00 09/27/19 08:00 09/27/19 08:00 Oxygen Flow Rate (L/min) 6 Oxygen Delivery Method Room Air Weight: 94.7 kg Body Mass Index (BMI) 26.8 Intake and Output for Last 24 Hours 09/25/19 09/26/19 09/27/19 23:59 23:59 23:59 Intake Total 3010 / 3110 3080 / 3080 Output Total 130 / 255 415 / 415 Balance 2880 / 2855 2665 / 2665 General: Alert, Oriented x3, Cooperative, No apparent distress Laboratory Results 09/26/19 10:56: POC Glucose 76 09/27/19 05:32: WBC 8.5, RBC 3.20 L, Hgb 9.7 L, Hct 29.6 L, MCV 92.5, MCH 30.3, MCHC 32.8, RDW Std Deviation 43.4, RDW Coeff of Jewels 12.8, Plt Count 226, MPV 9.6 09/27/19 05:32: Sodium 138, Potassium 4.1, Chloride 109 H, Carbon Dioxide 25.0, Anion Gap 4 L, BUN 17, Creatinine 0.82, Estim Creat Clear Calc 107.21, Est GFR (MDRD) Af Amer 121, Est GFR (MDRD) Non-Af 100, BUN/Creatinine Ratio 20.6 H, Glucose 133 H, Calcium 7.5 L Current Medications Acetaminophen (Tylenol) 1,000 mg PO Q8 [facility] Last Admin: 09/27/19 06:18 Dose: 1,000 mg Documented by: Aspirin (Aspirin, Baby) 81 mg PO BIDCM [facility] Last Admin: 09/27/19 07:45 Dose: 81 mg Documented by: Enteral Nutritional Formula (Ensure Surgery) 237 ml PO TIDCM [facility] Last Admin: 09/27/19 07:47 Dose: 237 ml Documented by: Famotidine (Pepcid) 20 mg PO DAILY [facility] Last Admin: 09/27/19 07:45 Dose: 20 mg Documented by: Vancomycin IV Pharmacy to Dose (1 ea/ Sodium Chloride) 500 mls @ 250 mls/hr IV X1 PRN; Protocol PRN Reason: Rx to Dose Ceftriaxone Sodium 2 gm/ (Sodium Chloride) 50 mls @ 100 mls/hr IV Q24 [facility] Influenza Virus Vaccine Quadrival (Flucelvax /Fluzone ) 0.5 ml IM .ONCE ONE Stop: 09/27/19 10:01 Last Admin: 09/27/19 07:54 Dose: 0.5 ml Documented by: Ketorolac Tromethamine (Toradol) 15 mg IV Q6H PRN PRN PRN Reason: Pain Score 1-5/10 Stop: 09/28/19 14:44 Meloxicam (Mobic) 7.5 mg PO BID [facility] Morphine Sulfate (Ms Contin) 15 mg PO BID [facility] Ondansetron HCl (Zofran) 4 mg IV Q8H PRN PRN PRN Reason: NAUSEA Oxycodone HCl (Oxyir) 5 - 10 mg PO Q4H PRN PRN PRN Reason: Pain Score 4-10/10 Last Admin: 09/27/19 07:43 Dose: 10 mg Documented by: Promethazine HCl (Phenergan) 12.5 mg IM Q6H PRN PRN; Protocol PRN Reason: NAUSEA/VOMITING Senna/Docusate Sodium (Senokot-S, Kenna-Colace) 2 tablet PO BID [facility] Last Admin: 09/27/19 07:46 Dose: 2 tablet Documented by: Sodium Chloride () 10 - 40 ml IV UD PRN PRN Reason: SALINE FLUSH Medical Necessity - Tobacco Use Smoking Status: Former smoker Assessment/Plan All Active Problems (Last Updated 07/03/18 @ 15:01 by Jennifer Lewis) Preop cardiovascular exam (Acute) 1. S/P explant left total knee with placement of antibiotic spacer POD #1 2. Continue Pain Medications: Tylenol and oxycodone. Due to patient's uncontrolled pain MS Contin twice daily has been ordered. We will continue with this for 4 days postoperatively upon discharge. 3. DVT Prophylaxis: Aspirin 81 mg twice daily for 4 weeks postoperatively 4. PT/OT: Continue with knee immobilizer at all times. Patient will be touchdown weightbearing with knee immobilizer 2 weeks postoperatively followed by 50% weightbearing after his 2-week postoperative visit. 5. H & H: 9.7/29.6, asymptomatic 6. Encouraged Incentive Spirometry 7. Consult with infectious disease for management of antibiotics. Patient is currently on Ancef and vancomycin until Dr. Faria has evaluated the patient. Appreciate input for management of antibiotics. Patient will require PICC line in 6 weeks IV antibiotics. 8. Hemovac drain: Currently with 195 mL output. Plan will be for removal tomorrow. 9. Disposition: Plan will be for possible discharge home tomorrow if PICC line has been established as well as antibiotic orders. Patient will work with physical therapy/Occupational Therapy. Pain medications have been adjusted to see if we can get better control postoperatively. If patient is doing well and the pain is well controlled possible discharge tomorrow. I have reviewed the [place] Automated Rx Reporting System (OARRS) report for this patient for refill pattern and other prescriber involvement as part of the appropriate surveillance for the provision of acute and chronic controlled medications. The report was requested and reviewed on the date of this entry and was considered in the prescribing process.
--- NOTE | 2019-09-27 09:47 | PCM.DC.TKR ---
Discharge Diet: No Restrictions Discharge Activity: May Not Drive May shower in (days): 1 - Okay to shower and get wet if dressing is intact to skin. Turn dressing away from water Ice area for (Minutes): 20 - Every 1-2 hours while awake Weight Bearing Status: Toe touch weight bearing - With walker on left lower extremity Elevate: Operative Extremity Additional Activity Instructions:: Wear elastic stockings for 2 weeks after your surgery. Call your doctor if your incision/area has: Continuous Slow Oozing, Sudden Increased Bleeding, Increased Pain/ Swelling, Increased Redness, Foul Smelling Discharge Call your doctor if you observe: Fever of 101 or Higher, Coldness, Increased Pain, Numbness or Tingling, Change in Color, Calf discomfort, Uncontrolled pain Remove Dressing in (days):: 4 - Okay to remove dressing on October 02, 2019 Additional Instructions: Follow orthopedic postop instructions Allergies/Adverse Reactions: Allergies No Known Allergies Allergy (Verified 09/26/19 10:37) Medications to take at Discharge Ceftriaxone 2 gm IV Q24 40 Days #40 vial 09/27/19 Vancomycin/0.9 % Sod Chloride [Vanco 1.5 gm/300 ml-0.9% NaCl] 1.5 gm IV Q12H 40 Days #80 plast..bag 09/27/19 Acetaminophen [Tylenol] 1,000 mg PO Q8 #100 tab 09/28/19 Aspirin [Aspirin, Baby] 81 mg PO BIDCM #60 tab 09/28/19 Famotidine [Pepcid] 20 mg PO DAILY #30 tab 09/28/19 Meloxicam [Mobic] 7.5 mg PO BID #60 tab 09/28/19 Oxycodone [Oxyir] 5 - 10 mg PO Q4H PRN PRN 5 Days #60 tablet 09/28/19 Senna/Docusate Sodium [Senokot-S] 2 tab PO BID #10 tab 09/28/19 morphine SR tablet [Ms Contin] 15 mg PO BID 3 Days #6 tablet 09/28/19 The following prescriptions were given: Aspirin [Aspirin, Baby] 81 mg PO BIDCM #60 tab Transmission Status: Pending to [facility] Ceftriaxone 2 gm IV Q24 40 Days #40 vial Prescription Printed Meloxicam [Mobic] 7.5 mg PO BID #60 tab Transmission Status: Pending to [facility] morphine SR tablet [Ms Contin] 15 mg PO BID 3 Days #6 tablet Transmission Status: Sent to [facility] Oxycodone [Oxyir] 5 - 10 mg PO Q4H PRN PRN 5 Days #60 tablet PRN Reason: Pain Score 4-10/10 Transmission Status: Sent to [facility] Famotidine [Pepcid] 20 mg PO DAILY #30 tab Transmission Status: Pending to [facility] Senna/Docusate Sodium [Senokot-S] 2 tab PO BID #10 tab Transmission Status: Pending to [facility] Acetaminophen [Tylenol] 1,000 mg PO Q8 #100 tab Transmission Status: Pending to [facility] Vancomycin/0.9 % Sod Chloride [Vanco 1.5 gm/300 ml-0.9% NaCl] 1.5 gm IV Q12H 40 Days #80 plast..bag Prescription Printed Primary Care Physician: Mike Mccall MD [Primary Care Provider] - Test Results: Test results from this visit will be discussed in further detail at your follow-up appointment, if applicable. Please Follow Up With: Home Health Please Follow Up With: Casey Faria MD When: f/u 2 weeks Please Follow Up With: Darryl Gil PA-C When: 10/11/19 @ 3:45 pm
--- NOTE | 2019-09-27 10:00 | CASEMGMT ---
RN ROBIN Face to Face with patient for initial transition planning/care coordination assessment. RN CM introduced self and role at [facility]. Patient lying in bed, alert and oriented. Patient willing to participate in assessment and is able to answer all questions appropriately. Care providers, pharmacy, and demographics verified. Patient wishes to discharge home, will need HHC for IV ATB. Patient states he has no further needs or concerns at this time. CM to follow for discharge planning needs that may arise. PCP: Stefany Specialists: Kathy Odell Pharmacy: [facility] Insurance: [employer] [place] Prescription Benefit: yes Living Will/HPOA: yes, daughter Carolina Bruno LNOK: daughter Living Arrangements: Patient will be staying with daughter in her 1 story home. Transportation: daughter DME/HHC: Patient has cane, walker, crutches, and hip kit. Patient provided with list of HHC and infusion companies. Patient to review list and give choices. Disposition Plan: Patient to discharge home with HHC, family support, and follow-up plans in place. Luba RICKETTS, RN, CM
--- NOTE | 2019-09-27 10:15 | CON.PCM_ITS ---
Problem List (1) Infection of prosthetic left knee joint Status: Acute Reason for Consult: PJI Consulted by: Dr. Chavez History of Present Illness: The patient is a 64 year old M with L knee replacement about a year ago. Had stiffness ever since it was put in. Worse with standing, improves with movement. Did have small incision dehiscence at PT during post-op period. Things about the same until 6 weeks ago. Developed callus and then blister below patella. Had ongoing serous drainage, some surrounding redness. No abd, no fever, no sweats. Saw Dr. Chavez, aspiration done 08/30. Cx was neg. Taken to OR 09/26 for spacer placement. Feeling ok. Full ROS performed and neg except as noted above. - Medical History Past Medical History (Chronic Problems): Chronic Problems (Last Updated 07/03/18 @ 15:01 by Jennifer Lewis) Patent foramen ovale (Chronic) Nonrheumatic aortic valve insufficiency (Chronic) Dilated aortic root (Chronic) Hyperlipidemia (Chronic) Allergies/Adverse Reactions: Allergies No Known Allergies Allergy (Verified 09/26/19 10:37) Home Medications: Ambulatory Orders Medication Instructions Recorded Ceftriaxone 2 gm IV Q24 40 Days #40 vial 09/27/19 Vancomycin/0.9 % Sod Chloride 1.5 gm IV Q12H 40 Days #80 09/27/19 [Vanco 1.5 gm/300 ml-0.9% NaCl] plast..bag - Social History SMOKING STATUS:: Former smoker Vital Signs Temp Pulse Resp BP Pulse Ox 98.6 F 91 16 109/63 95 09/27/19 08:00 09/27/19 08:00 09/27/19 08:00 09/27/19 08:00 09/27/19 08:00 Oxygen Flow Rate (L/min) 6 Oxygen Delivery Method Room Air Weight: 94.7 kg Body Mass Index (BMI) 26.8 Laboratory Tests Past 24 Hrs 09/27/19 09/27/19 05:32 05:32 WBC 8.5 RBC 3.20 L Hgb 9.7 L Hct 29.6 L MCV 92.5 MCH 30.3 MCHC 32.8 RDW Std Deviation 43.4 RDW Coeff of Jewels 12.8 Plt Count 226 MPV 9.6 Sodium 138 Potassium 4.1 Chloride 109 H Carbon Dioxide 25.0 Anion Gap 4 L BUN 17 Creatinine 0.82 Estim Creat Clear Calc 107.21 Est GFR (MDRD) Af Amer 121 Est GFR (MDRD) Non-Af 100 BUN/Creatinine Ratio 20.6 H Glucose 133 H Calcium 7.5 L - Other Studies Radiology: [] reviewed Other Studies: [] Route of nutrition/ use of supplements: [] Nutritional Intake: [] IV Site: [] [place]on Catheter: [] - Physical Exam General: Alert, Oriented x3, Cooperative, No apparent distress HEENT: Atraumatic, PERRLA, EOMI Neck: Supple, No Nodes Lungs: Clear to auscultation, Normal air movement Cardiovascular: Regular rate, Regular Rhythm Abdomen: Soft, Non Tender, Non-Distended Extremities: No edema Skin: Incision - leg wrapped IV Site: Peripheral, without redness Musculoskeletal: - - L knee in immobilizer, drain in place Neurological: Cranial nerves II-XII grossly intact - Assessment/Plan Antibiotics: [] Assessment/Plan: [] L knee PJI - now s/p spacer placement by 09/26/19. Prior aspiration 08/30/19 cx neg. Surg cx pending. Will cover with vanc/ceftriaxone empirically. Order picc. Plan on 6 week course of abx, weekly bmp, cbc, esr, and vanc trough. Will adjust abx based on further cx data. Will follow, thank you, d/w disease case manager rn.
--- NOTE | 2019-09-27 10:37 | PCM.RX.CS ---
Consult Pharmacy has been consulted to manage selected antiobiotic: Vancomycin Type of Consult: New start Suspected Infection: Other - Joint Prior Doses of Antibiotics Received/Current Regimen: VANCOMYCIN IV 1500MG GIVEN 09/26 @ 6208 AND 09/27 @ 8295 Labs: Sodium 138 mmol/L (136-145) 09/27/19 05:32 Potassium 4.1 mmol/L (3.5-5.1) 09/27/19 05:32 Chloride 109 mmol/L (98-107) H 09/27/19 05:32 Carbon Dioxide 25.0 mmol/L (21.0-32.0) 09/27/19 05:32 Anion Gap 4 (5-15) L 09/27/19 05:32 BUN 17 mg/dL (7-18) 09/27/19 05:32 Creatinine 0.82 mg/dL (0.70-1.30) 09/27/19 05:32 Est GFR (MDRD) Af Amer 121 mL/min (>60) 09/27/19 05:32 Est GFR (MDRD) Non-Af 100 mL/min (>60) 09/27/19 05:32 BUN/Creatinine Ratio 20.6 RATIO (10-20) H 09/27/19 05:32 Glucose 133 mg/dL (74-106) H 09/27/19 05:32 Microbiology: Microbiology 09/17/19 15:04 Swab (Method) Nasal Screen MRSA/MSSA - Final Weight used for dosin kg Estimated Creatinine Clearance: 106 Goal Trough: 15-20 mcg/mL Pharmacy Plan for Drug Dosin. Patient received 2 prior doses of vancomycin this admission 2. Will start new regimen of 1250mg Q8H starting 8 hours after last dose 3. Will get trough before the 3rd dose of the new regimen because the patient has already received 2 doses of 1500mg this admission Pharmacy Service will continue to monitor and adjust dosing as required. Labs to be done on [date and time ordered]: 09/28/19 @ 1691
[2019-09-27] MEDS: morphine SR 15 MG Tablet PO ×2 (10:47→21:46)
[2019-09-27] MEDS: 0.9% Saline Lock 10 ML Syringe IV (10:47)
--- NOTE | 2019-09-27 13:00 | CASEMGMT ---
DENEEN KELLY in to see patient regarding choices for HHC and Infusion companies. Patient states he would like [facility] and [facility]. Daughter at bedside and updated on process for HHC and ATB setup. DENEEN KELLY sent referral to [facility] and they are able to accept the patient. DENEEN KELLY sent referral to [facility] and awaiting Financial information. DENEEN KELLY will continue to follow this patient and plan for a safe discharge.
--- NOTE | 2019-09-27 13:55 | CASEMGMT ---
LW/POA forms not on file. SW let pt know, asked him to bring the forms in as able. Pt states understanding. ALVIN Baldwin
[2019-09-27 14:00] VITALS: BP 120/65; PULSE 105; RESP 16; TEMP 38.1; O2SAT 95
[2019-09-27] MEDS: Ketorolac 15 MG/ML Vial IV (14:17)
[2019-09-27 20:12] VITALS: BP 101/50; PULSE 84; RESP 18; TEMP 36.9; O2SAT 94
[2019-09-27] MEDS: Meloxicam 7.5 MG Tablet PO (21:37)
[2019-09-28 02:51] LABS: Hematocrit 25.7 % (40-54); Hemoglobin 8.6 g/dL (13.0-16.5); Mean Corp Hgb Conc 33.5 g/dL (32-36); Mean Corpuscular Hgb 30.8 pg (27.0-32.0); Mean Corpuscular Volume 92.1 fL (80-94); Platelet Count 189 K/mm3 (150-450); RBC Distribution Width CV 13.2 % (11.6-14.6); Red Blood Count 2.79 M/mm3 (4.6-6.2); White Blood Count 6.9 K/mm3 (4.4-11.0)
[2019-09-28] MEDS: 0.9% Saline Lock 10 ML Syringe IV ×3 (03:12→13:05)
[2019-09-28 03:20] VITALS: BP 101/56; PULSE 83; RESP 18; TEMP 37.1; O2SAT 92
[2019-09-28 03:25] LABS: Vancomycin, Trough Level 15.9 ug/mL (5.0-15.0)
--- NOTE | 2019-09-28 04:00 | PCM.RX.CS ---
Consult Pharmacy has been consulted to manage selected antiobiotic: Vancomycin Type of Consult: Follow-up Labs: Sodium 138 mmol/L (136-145) 09/27/19 05:32 Potassium 4.1 mmol/L (3.5-5.1) 09/27/19 05:32 Chloride 109 mmol/L (98-107) H 09/27/19 05:32 Carbon Dioxide 25.0 mmol/L (21.0-32.0) 09/27/19 05:32 Anion Gap 4 (5-15) L 09/27/19 05:32 BUN 17 mg/dL (7-18) 09/27/19 05:32 Creatinine 0.82 mg/dL (0.70-1.30) 09/27/19 05:32 Est GFR (MDRD) Af Amer 121 mL/min (>60) 09/27/19 05:32 Est GFR (MDRD) Non-Af 100 mL/min (>60) 09/27/19 05:32 BUN/Creatinine Ratio 20.6 RATIO (10-20) H 09/27/19 05:32 Glucose 133 mg/dL (74-106) H 09/27/19 05:32 Vancomycin Trough 15.9 ug/mL (5.0-15.0) H 09/28/19 02:44 Microbiology: Microbiology 09/26/19 15:30 Tissue - Knee Gram Stain - Final 09/26/19 15:30 Tissue - Knee Wound Culture - Preliminary No growth-Final to follow 09/26/19 15:30 Tissue - Knee Gram Stain - Final 09/26/19 15:30 Tissue - Knee Wound Culture - Preliminary No growth-Final to follow 09/26/19 15:30 Tissue - Knee Gram Stain - Final 09/26/19 15:30 Tissue - Knee Wound Culture - Preliminary No growth-Final to follow 09/26/19 15:30 Tissue - Knee Gram Stain - Final 09/26/19 15:30 Tissue - Knee Wound Culture - Preliminary No growth-Final to follow 09/17/19 15:04 Swab (Method) Nasal Screen MRSA/MSSA - Final Goal Trough: 15-20 mcg/mL Pharmacy Plan for Drug Dosing: Pharmacy Service will continue to monitor and adjust dosing as required. Medications Vancomycin HCl 1,250 mg/ (Sodium Chloride) 275 mls @ 167 mls/hr IV Q8H JOE Last Admin: 09/28/19 03:12 Dose: 167 mls/hr Documented by: TROUGH 15.9 NO CHANGES NEXT TROUGH 10/02 @ 0230 Follow-Up Labs: Trough Vancomycin Labs to be done on [date and time ordered]: 10/02 @ 0230
[2019-09-28] MEDS: Acetaminophen 500 MG Tablet 1000 MG PO (05:07)
--- NOTE | 2019-09-28 06:52 | PCM.PN.ORT ---
Patient Problems: Active and Suspected Problems (Last Updated 07/03/18 @ 15:01 by Jennifer Lewis) Infection of prosthetic left knee joint (Acute) Subjective: The patient was sitting in bedside chair upon examination. Patient denies any chest pain, shortness of breath, dizziness, lightheadedness, nausea or vomiting, or calf pain. Pain is controlled on medications. No adverse overnight events. Overall patient is doing well. He has been up already this morning and has no episodes of dizziness or lightheadedness. Patient has had PICC line established. Antibiotics are set up by the infectious disease physician. Output in the Hemovac drain is trending down. Home health has been established for the patient for IV antibiotics. Objective: Vital signs stable and afebrile. Patient is able to plantarflex and dorsiflex actively. Sensation is intact to light touch to saphenous, sural, superficial and deep peroneal, and tibial distribution. Dressing is clean dry and intact. Hemovac drain in place: There has been 100 mL output from yesterday. Minimal output in the canister. Hemovac drain was removed in which Steri-Strips were placed with compressive dressing with ABD and Yash wrap. Negative Homans bilaterally, negative signs and symptoms of DVT. - Physical Exam Vitals/I&O's: Vital Signs Temp Pulse Resp BP Pulse Ox 98.7 F 83 18 101/56 L 92 09/28/19 03:20 09/28/19 03:20 09/28/19 03:20 09/28/19 03:20 09/28/19 03:20 Oxygen Flow Rate (L/min) 6 Oxygen Delivery Method Room Air Weight: 94.7 kg Body Mass Index (BMI) 26.8 Intake and Output for Last 24 Hours 09/26/19 09/27/19 09/28/19 23:59 23:59 23:59 Intake Total 3010 / 3110 4380 / 4380 775 / 775 Output Total 130 / 255 1490 / 1490 950 / 950 Balance 2880 / 2855 2890 / 2890 -175 / -175 General: Alert, Oriented x3, Cooperative, No apparent distress Microbiology Past 72 Hours 09/26/19 15:30 Tissue - Knee Gram Stain - Final 09/26/19 15:30 Tissue - Knee Wound Culture - Preliminary No growth-Final to follow 09/26/19 15:30 Tissue - Knee Gram Stain - Final 09/26/19 15:30 Tissue - Knee Wound Culture - Preliminary No growth-Final to follow 09/26/19 15:30 Tissue - Knee Gram Stain - Final 09/26/19 15:30 Tissue - Knee Wound Culture - Preliminary No growth-Final to follow 09/26/19 15:30 Tissue - Knee Gram Stain - Final 09/26/19 15:30 Tissue - Knee Wound Culture - Preliminary No growth-Final to follow Laboratory Results 09/28/19 02:44: WBC 6.9, RBC 2.79 L, Hgb 8.6 L, Hct 25.7 L, MCV 92.1, MCH 30.8, MCHC 33.5, RDW Std Deviation 44.0 H, RDW Coeff of Jewels 13.2, Plt Count 189, MPV 9.0 09/28/19 02:44: Vancomycin Trough 15.9 H Current Medications Acetaminophen (Tylenol) 1,000 mg PO Q8 [facility] Last Admin: 09/28/19 05:07 Dose: 1,000 mg Documented by: Aspirin (Aspirin, Baby) 81 mg PO BIDCM [facility] Last Admin: 09/27/19 16:10 Dose: 81 mg Documented by: Enteral Nutritional Formula (Ensure Surgery) 237 ml PO TIDCM [facility] Last Admin: 09/27/19 16:09 Dose: 237 ml Documented by: Famotidine (Pepcid) 20 mg PO DAILY [facility] Last Admin: 09/27/19 07:45 Dose: 20 mg Documented by: Vancomycin IV Pharmacy to Dose (1 ea/ Sodium Chloride) 500 mls @ 250 mls/hr IV X1 PRN; Protocol PRN Reason: Rx to Dose Ceftriaxone Sodium 2 gm/ (Sodium Chloride) 50 mls @ 100 mls/hr IV Q24 [facility] Last Infusion: 09/27/19 11:14 Dose: Infused Documented by: Vancomycin HCl 1,250 mg/ (Sodium Chloride) 275 mls @ 167 mls/hr IV Q8H [facility] Last Infusion: 09/28/19 04:51 Dose: Infused Documented by: Ketorolac Tromethamine (Toradol) 15 mg IV Q6H PRN PRN PRN Reason: Pain Score 1-5/10 Stop: 09/28/19 14:44 Last Admin: 09/27/19 14:17 Dose: 15 mg Documented by: Meloxicam (Mobic) 7.5 mg PO BID [facility] Last Admin: 09/27/19 21:37 Dose: 7.5 mg Documented by: Morphine Sulfate (Ms Contin) 15 mg PO BID [facility] Last Admin: 09/27/19 21:46 Dose: 15 mg Documented by: Ondansetron HCl (Zofran) 4 mg IV Q8H PRN PRN PRN Reason: NAUSEA Oxycodone HCl (Oxyir) 5 - 10 mg PO Q4H PRN PRN PRN Reason: Pain Score 4-10/10 Last Admin: 09/27/19 16:09 Dose: 10 mg Documented by: Promethazine HCl (Phenergan) 12.5 mg IM Q6H PRN PRN; Protocol PRN Reason: NAUSEA/VOMITING Senna/Docusate Sodium (Senokot-S, Kenna-Colace) 2 tablet PO BID [facility] Last Admin: 09/27/19 21:38 Dose: 2 tablet Documented by: Sodium Chloride () 10 - 40 ml IV UD PRN PRN Reason: SALINE FLUSH Last Admin: 09/28/19 03:12 Dose: 10 ml Documented by: Medical Necessity - Tobacco Use Smoking Status: Former smoker Assessment/Plan All Active Problems (Last Updated 07/03/18 @ 15:01 by Jennifer Lewis) Infection of prosthetic left knee joint (Acute) Preop cardiovascular exam (Acute) 1. S/P explant left total knee with placement of antibiotic spacer POD #2 2. Continue Pain Medications: Tylenol and oxycodone. Since adding the MS Contin his pain has been much better controlled. 3. DVT Prophylaxis: Aspirin 81 mg twice daily for 4 weeks postoperatively 4. PT/OT: Continue with knee immobilizer at all times. Patient will be touchdown weightbearing with knee immobilizer 2 weeks postoperatively followed by 50% weightbearing after his 2-week postoperative visit. 5. H & H: 8.6/25.7, asymptomatic. Patient has been up walking with no episodes of dizziness or lightheadedness. 6. Encouraged Incentive Spirometry 7. Consult with infectious disease for management of antibiotics. Patient is currently on Ancef and vancomycin until Dr. Faria has evaluated the patient. Appreciate input for management of antibiotics. Patient will require PICC line in 6 weeks IV antibiotics. 8. Hemovac drain: Currently with 100 mL output. Drain was removed today with Steri-Strips placed as well as a compressive dressing with Yash wrap and ABD. 9. Disposition: Patient is already had PICC line established and is currently using ceftriaxone and vancomycin for his antibiotics. Home health has been established. At this time plan will be for discharge home today with home health. Prescriptions will be E scribed to [facility]. Patient will follow-up per postop instructions. Patient was also instructed that when sitting in a recliner he can undo the knee immobilizer for icing. However when he is up walking and sleeping he is to have the knee immobilizer on. Patient voiced understanding agreement with treatment plan. I have reviewed the [place] Automated Rx Reporting System (OARRS) report for this patient for refill pattern and other prescriber involvement as part of the appropriate surveillance for the provision of acute and chronic controlled medications. The report was requested and reviewed on the date of this entry and was considered in the prescribing process.
[2019-09-28] MEDS: oxyCODONE 5 MG Tablet PO ×2 (07:02→13:21)
[2019-09-28 08:50] VITALS: BP 135/69; PULSE 99; RESP 18; TEMP 36.7; O2SAT 93
[2019-09-28] MEDS: Ensure Surgery 237 ML LIQUID PO (09:03)
[2019-09-28] MEDS: Famotidine 20 MG Tablet PO (09:04)
[2019-09-28] MEDS: Senna/Docusate Sodium 1 Tablet 2 TABLET PO (09:04)
[2019-09-28] MEDS: Aspirin 81 MG TAB.CHEW PO (09:04)
[2019-09-28] MEDS: Meloxicam 7.5 MG Tablet PO (09:04)
[2019-09-28] MEDS: morphine SR 15 MG Tablet PO (09:56)
--- NOTE | 2019-09-28 11:20 | CASEMGMT ---
DENEEN KELLY called [facility] and confirmed setup for IV ATBs for today at 1999. [facility] updated with discharge and confirmed start time for HHC at 1999 today. DENEEN KELLY updated the patient. Patient voiced understanding and no further questions at this time.
[2019-09-28 13:07] VITALS: BP 127/71; PULSE 99; RESP 18; TEMP 37.2; O2SAT 98
== END 2019-09-28 13:50 | disposition home health service (06) | DRG 467 ==
LOC: ACINP 10:13 → MS3 15:05
PROVIDERS: Internal Medicine Infectious Disease; Admitting Provider Specialist; Family Provider Family Medicine; PCP Family Medicine; Referring Provider Specialist; Visit Provider Specialist
PROC: 0SRD0EZ Replacement of Left Knee Joint with Articulating Spacer, Open Approach (ICD-10-PCS; CPT 27488; principal; 2019-09-26 12:40)
DX: T84.54XA Infection and inflammatory reaction due to internal left knee prosthesis, initial encounter (principal); Q21.1 Atrial septal defect; Z87.891 Personal history of nicotine dependence; E78.00 Pure hypercholesterolemia, unspecified; Z23 Encounter for immunization; M25.162 Fistula, left knee
CPT/HCPCS: 36415; 36569; 73560; 80048; 80202; 82962; 85025; 85027; 87015; 87070; 87075; 87081; 87102; 87116; 87176; 87205; 87206; 93005; 97110; 97116; 97161; 97166; 97530; 97535; 99251; C1776; J7040; J7050; J7120; 90686; A4216; G0463; J0696; J3260

== ENCOUNTER 2019-10-08 13:17 | Outpatient (RCR) | payer OTHER, SELFPAY ==
[2019-09-26 16:54] VITALS: BMI 26.8
[2019-10-02 10:29] LABS: Hematocrit 32.1 % (40-54); Hemoglobin 10.6 g/dL (13.0-16.5); Mean Corpuscular Hgb 30.6 pg (27.0-32.0); Mean Corpuscular Volume 92.8 fL (80-94); Mean Platelet Vol. 9.7 fl (6.2-12.0); Platelet Count 402 K/mm3 (150-450); RBC Distribution Width CV 13.2 % (11.6-14.6); Red Blood Count 3.46 M/mm3 (4.6-6.2); White Blood Count 6.5 K/mm3 (4.4-11.0)
[2019-10-02 10:43] LABS: Erythrocyte Sedimentation Rate 77 mm/hr (0-20)
[2019-10-02 10:51] LABS: Anion Gap 7 (5-15); BUN 11 mg/dL (7-18); BUN/Creat Ratio 12.9 RATIO (10-20); Calcium,Total 8.9 mg/dL (8.5-10.1); Chloride 105 mmol/L (98-107); Creatinine, Serum 0.86 mg/dL (0.70-1.30); EST Glomerular Filtration Rate 96 mL/min (>60); Est Glom Filt Rate - Afr Amer 116 mL/min (>60); Glucose 127 mg/dL (74-106); Potassium 3.7 mmol/L (3.5-5.1); Sodium Level 139 mmol/L (136-145)
[2019-10-02 10:55] LABS: Vancomycin, Trough Level 11.6 ug/mL (5.0-15.0)
[2019-10-08 13:28] LABS: Erythrocyte Sedimentation Rate 64 mm/hr (0-20)
[2019-10-08 13:30] LABS: Hemoglobin 11.4 g/dL (13.0-16.5); Mean Corp Hgb Conc 31.7 g/dL (32-36); Mean Corpuscular Hgb 30.1 pg (27.0-32.0); Mean Platelet Vol. 8.8 fl (6.2-12.0); Platelet Count 596 K/mm3 (150-450); RBC Distribution Width CV 13.9 % (11.6-14.6); RBC Distribution Width SD 47.8 fl (35.1-43.9); Red Blood Count 3.79 M/mm3 (4.6-6.2); White Blood Count 6.6 K/mm3 (4.4-11.0)
[2019-10-08 13:43] LABS: Anion Gap 8 (5-15); BUN 24 mg/dL (7-18); BUN/Creat Ratio 20.9 RATIO (10-20); Calcium,Total 9.2 mg/dL (8.5-10.1); Chloride 106 mmol/L (98-107); Creatinine, Serum 1.15 mg/dL (0.70-1.30); EST Glomerular Filtration Rate 68 mL/min (>60); Est Glom Filt Rate - Afr Amer 83 mL/min (>60); Glucose 144 mg/dL (74-106); Potassium 4.1 mmol/L (3.5-5.1); Sodium Level 140 mmol/L (136-145)
== END 2019-10-08 18:00 | disposition home or self-care (01) ==
LOC: HHLAB 13:17
PROVIDERS: Family Provider Family Medicine; PCP Family Medicine; Referring Provider Internal Medicine Infectious Disease; Visit Provider Internal Medicine Infectious Disease
DX: Z96.652 Presence of left artificial knee joint (principal)
CPT/HCPCS: 80048; 80202; 85027; 85652

== ENCOUNTER 2019-11-05 13:07 | Outpatient (RCR) | payer OTHER, SELFPAY ==
[2019-09-26 16:54] VITALS: BMI 26.8
[2019-10-15 14:31] LABS: Erythrocyte Sedimentation Rate 46 mm/hr (0-20)
[2019-10-15 14:33] LABS: Hematocrit 37.8 % (40-54); Mean Corp Hgb Conc 31.7 g/dL (32-36); Mean Corpuscular Hgb 29.9 pg (27.0-32.0); Mean Platelet Vol. 9.7 fl (6.2-12.0); Platelet Count 398 K/mm3 (150-450); RBC Distribution Width CV 14.2 % (11.6-14.6); Red Blood Count 4.02 M/mm3 (4.6-6.2); White Blood Count 4.9 K/mm3 (4.4-11.0)
[2019-10-15 14:37] LABS: Anion Gap 4 (5-15); BUN 24 mg/dL (7-18); BUN/Creat Ratio 23.5 RATIO (10-20); Calcium,Total 8.5 mg/dL (8.5-10.1); Chloride 110 mmol/L (98-107); Creatinine, Serum 1.02 mg/dL (0.70-1.30); EST Glomerular Filtration Rate 78 mL/min (>60); Est Glom Filt Rate - Afr Amer 95 mL/min (>60); Glucose 95 mg/dL (74-106); Potassium 4.4 mmol/L (3.5-5.1); Sodium Level 139 mmol/L (136-145)
[2019-10-22 15:23] LABS: Erythrocyte Sedimentation Rate 34 mm/hr (0-20)
[2019-10-22 15:26] LABS: Hemoglobin 13.2 g/dL (13.0-16.5); Mean Corp Hgb Conc 32.2 g/dL (32-36); Mean Corpuscular Hgb 30.2 pg (27.0-32.0); Mean Corpuscular Volume 93.8 fL (80-94); Mean Platelet Vol. 9.9 fl (6.2-12.0); Platelet Count 246 K/mm3 (150-450); RBC Distribution Width CV 14.3 % (11.6-14.6); RBC Distribution Width SD 49.6 fl (35.1-43.9); Red Blood Count 4.37 M/mm3 (4.6-6.2); White Blood Count 4.4 K/mm3 (4.4-11.0)
[2019-10-22 15:36] LABS: Anion Gap 7 (5-15); BUN 25 mg/dL (7-18); BUN/Creat Ratio 24.3 RATIO (10-20); Chloride 106 mmol/L (98-107); Creatinine, Serum 1.03 mg/dL (0.70-1.30); EST Glomerular Filtration Rate 78 mL/min (>60); Est Glom Filt Rate - Afr Amer 94 mL/min (>60); Glucose 100 mg/dL (74-106); Potassium 4.1 mmol/L (3.5-5.1); Sodium Level 137 mmol/L (136-145)
[2019-10-29 14:38] LABS: Erythrocyte Sedimentation Rate 12 mm/hr (0-20)
[2019-10-29 14:39] LABS: Hematocrit 41.1 % (40-54); Hemoglobin 12.8 g/dL (13.0-16.5); Mean Corp Hgb Conc 31.1 g/dL (32-36); Mean Corpuscular Hgb 28.9 pg (27.0-32.0); Mean Corpuscular Volume 92.8 fL (80-94); Mean Platelet Vol. 9.8 fl (6.2-12.0); Platelet Count 300 K/mm3 (150-450); RBC Distribution Width CV 14.1 % (11.6-14.6); RBC Distribution Width SD 48.3 fl (35.1-43.9); Red Blood Count 4.43 M/mm3 (4.6-6.2); White Blood Count 3.5 K/mm3 (4.4-11.0)
[2019-10-29 14:44] LABS: Anion Gap 7 (5-15); BUN 21 mg/dL (7-18); BUN/Creat Ratio 20.6 RATIO (10-20); Calcium,Total 9.4 mg/dL (8.5-10.1); Chloride 108 mmol/L (98-107); Creatinine, Serum 1.02 mg/dL (0.70-1.30); EST Glomerular Filtration Rate 78 mL/min (>60); Est Glom Filt Rate - Afr Amer 95 mL/min (>60); Glucose 85 mg/dL (74-106); Potassium 4.5 mmol/L (3.5-5.1); Sodium Level 141 mmol/L (136-145)
[2019-11-05 13:46] LABS: Erythrocyte Sedimentation Rate 16 mm/hr (0-20)
[2019-11-05 13:49] LABS: Hematocrit 39.4 % (40-54); Hemoglobin 12.7 g/dL (13.0-16.5); Mean Corp Hgb Conc 32.2 g/dL (32-36); Mean Corpuscular Volume 93.1 fL (80-94); Mean Platelet Vol. 10.3 fl (6.2-12.0); Platelet Count 316 K/mm3 (150-450); RBC Distribution Width CV 13.6 % (11.6-14.6); RBC Distribution Width SD 46.6 fl (35.1-43.9); Red Blood Count 4.23 M/mm3 (4.6-6.2); White Blood Count 3.6 K/mm3 (4.4-11.0)
[2019-11-05 13:54] LABS: Anion Gap 6 (5-15); BUN 20 mg/dL (7-18); BUN/Creat Ratio 19.6 RATIO (10-20); Calcium,Total 9.1 mg/dL (8.5-10.1); Chloride 111 mmol/L (98-107); Creatinine, Serum 1.02 mg/dL (0.70-1.30); EST Glomerular Filtration Rate 78 mL/min (>60); Est Glom Filt Rate - Afr Amer 95 mL/min (>60); Glucose 111 mg/dL (74-106); Potassium 4.3 mmol/L (3.5-5.1); Sodium Level 141 mmol/L (136-145)
== END 2019-11-05 18:00 | disposition home or self-care (01) ==
LOC: HHLAB 13:07
PROVIDERS: Family Provider Family Medicine; PCP Family Medicine; Referring Provider Internal Medicine Infectious Disease; Visit Provider Internal Medicine Infectious Disease
DX: Q21.1 Atrial septal defect (principal); I35.1 Nonrheumatic aortic (valve) insufficiency; I77.810 Thoracic aortic ectasia; E78.5 Hyperlipidemia, unspecified; T84.54XA Infection and inflammatory reaction due to internal left knee prosthesis, initial encounter
CPT/HCPCS: 80048; 85027; 85652

== ENCOUNTER → 2020-01-04 08:49 | Outpatient (CLI) | payer OTHER, SELFPAY ==
[2019-09-26 16:54] VITALS: BMI 26.8
[2020-01-04 09:42] LABS: Hematocrit 46.5 % (40-54); Hemoglobin 15.3 g/dL (13.0-16.5); Mean Corp Hgb Conc 32.9 g/dL (32-36); Mean Corpuscular Hgb 29.9 pg (27.0-32.0); Mean Corpuscular Volume 90.8 fL (80-94); Mean Platelet Vol. 9.8 fl (6.2-12.0); Platelet Count 243 K/mm3 (150-450); RBC Distribution Width CV 14.2 % (11.6-14.6); RBC Distribution Width SD 46.6 fl (35.1-43.9); Red Blood Count 5.12 M/mm3 (4.6-6.2); White Blood Count 5.4 K/mm3 (4.4-11.0)
[2020-01-04 09:46] LABS: Anion Gap 7 (5-15); BUN 27 mg/dL (7-18); BUN/Creat Ratio 21.4 RATIO (10-20); CRP 4.53 mg/L (0.0-3.0); Calcium,Total 9.1 mg/dL (8.5-10.1); Chloride 106 mmol/L (98-107); Creatinine, Serum 1.26 mg/dL (0.70-1.30); EST Glomerular Filtration Rate 61 mL/min (>60); Est Glom Filt Rate - Afr Amer 74 mL/min (>60); Glucose 105 mg/dL (74-106); Potassium 4.1 mmol/L (3.5-5.1); Sodium Level 138 mmol/L (136-145)
[2020-01-04 10:00] LABS: Erythrocyte Sedimentation Rate 10 mm/hr (0-20)
== END ==
PROVIDERS: PCP Family Medicine; Referring Provider Internal Medicine Infectious Disease; Visit Provider Internal Medicine Infectious Disease
DX: T84.54XA Infection and inflammatory reaction due to internal left knee prosthesis, initial encounter (principal)
CPT/HCPCS: 36415; 80048; 85027; 85652; 86140

== ENCOUNTER → 2020-01-10 11:04 | Outpatient (CLI) | payer OTHER, SELFPAY ==
[2019-09-26 16:54] VITALS: BMI 26.8
[2020-01-10 11:37] LABS: Absolute Lymphocyte Count 2.14 X10^3/uL (0.83-4.51); Absolute Neutrophil Count 3.3 X10^3/uL (2.0-7.7); Basophil# 0.03 X10^3/uL; Basophil% 0.5 % (0-1); Eosinophil# 0.15 X10^3/uL; Eosinophils% 2.5 % (0-5); Hematocrit 46.6 % (40-54); Hemoglobin 15.1 g/dL (13.0-16.5); Lymphocyte # 2.14 X10^3/ul (4.0); Lymphocyte % 35.4 % (19-41); Mean Corp Hgb Conc 32.4 g/dL (32-36); Mean Corpuscular Hgb 29.2 pg (27.0-32.0); Mean Platelet Vol. 9.7 fl (6.2-12.0); Monocyte# 0.46 X10^3/uL; Monocyte% 7.6 % (0-10); NRBC Flagged by Analyzer 0 % (0-5); Neutrophil # 3.25 X10^3/uL (2.7-7.7); Neutrophil % 53.8 % (47-70); Platelet Count 251 K/mm3 (150-450); RBC Distribution Width CV 14.4 % (11.6-14.6); RBC Distribution Width SD 47.5 fl (35.1-43.9); Red Blood Count 5.18 M/mm3 (4.6-6.2)
[2020-01-10 11:56] LABS: Erythrocyte Sedimentation Rate 16 mm/hr (0-20)
[2020-01-10 12:01] LABS: CRP 3.82 mg/L (0.0-3.0)
== END ==
PROVIDERS: PCP Family Medicine; Referring Provider Specialist; Visit Provider Specialist
DX: T84.54XA Infection and inflammatory reaction due to internal left knee prosthesis, initial encounter (principal)
CPT/HCPCS: 36415; 85025; 85652; 86140

== ENCOUNTER → 2020-01-28 14:12 | Outpatient (CLI) | payer OTHER, SELFPAY ==
[2019-09-26 16:54] VITALS: BMI 26.8
[2020-01-28 14:39] LABS: Hematocrit 47.1 % (40-54); Hemoglobin 15.9 g/dL (13.0-16.5); Mean Corp Hgb Conc 33.8 g/dL (32-36); Mean Corpuscular Hgb 29.6 pg (27.0-32.0); Mean Corpuscular Volume 87.7 fL (80-94); Mean Platelet Vol. 9.8 fl (6.2-12.0); Platelet Count 284 K/mm3 (150-450); RBC Distribution Width CV 14.6 % (11.6-14.6); RBC Distribution Width SD 46.5 fl (35.1-43.9); Red Blood Count 5.37 M/mm3 (4.6-6.2); White Blood Count 6.9 K/mm3 (4.4-11.0)
[2020-01-28 15:04] LABS: Prothrombin Time (Protime)PT. 12.7 SECONDS (11.7-14.9)
[2020-01-28 15:05] LABS: Partial Thromboplast Time 26.4 Seconds (24.1-36.2)
[2020-01-28 15:19] LABS: AST(SGOT) 17 U/L (15-37); Alanine Aminotransfer ALT/SGPT 34 U/L (16-61); Alkaline Phosphatase 93 U/L (45-117); Anion Gap 8 (5-15); BUN 19 mg/dL (7-18); BUN/Creat Ratio 16.7 RATIO (10-20); Calcium,Total 9.6 mg/dL (8.5-10.1); Chloride 105 mmol/L (98-107); Creatinine, Serum 1.14 mg/dL (0.70-1.30); EST Glomerular Filtration Rate 69 mL/min (>60); Est Glom Filt Rate - Afr Amer 83 mL/min (>60); Glucose 110 mg/dL (74-106); Sodium Level 138 mmol/L (136-145)
== END ==
PROVIDERS: PCP Family Medicine; Referring Provider Family Medicine; Visit Provider Family Medicine
DX: Z01.818 Encounter for other preprocedural examination (principal)
CPT/HCPCS: 36415; 80053; 85027; 85610; 85730

== ENCOUNTER 2020-02-05 07:01 | Inpatient (IN) | payer OTHER, SELFPAY ==
[2019-09-26 16:54] VITALS: BMI 26.8
--- NOTE | 2020-01-30 11:49 | PCM.HP.BLA ---
History and Physical History and Physical [facility] Patient Name: Samy Walker : 1955 From: IFTIKHAR FISHER PA-C DATE OF SURGERY: 02/05/2020 SCHEDULED PROCEDURE: removal antibiotic spacer, revision left total knee arthroplasty HISTORY OF PRESENT ILLNESS: Preoperative history and physical exam was performed on January 30, 2020. This is a 64-year-old male who currently has an antibiotic spacer due to a postoperative total knee replacement infection. 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 Patient recently has had dentures placed on the top drill 5-6 weeks ago and had peridontal treatment for the lower teeth with cleaning on January 28, 2020. Patient's initial total knee replacement was on July 04, 2018. This was followed by removal left total knee arthroplasty to an antibiotic spacer on September 18, 2019. Patient was treated postoperatively with 6 weeks of IV antibiotics. He states his pain is very well controlled at this time. He presents without the use of any ambulatory assistance. Patient has recently seen a primary care physician in which an EKG was performed on January 25, 2020 as well as lab work on January 28, 2020. He currently denies any chest pain, shortness of breath, fevers chills, recent infections. After discussion with Dr. Olvin Chavez, patient wishes to proceed with phase 2 involving left knee removal antibiotic spacer with left revision total knee arthroplasty. REVIEW OF SYSTEMS: ROS: Const: Denies change in appetite, fever,or weight change. CV: Denies chest pain, heart murmur and irregular heartbeat. Resp: Denies cough, pneumonia, SOB, tuberculosis and wheezing. GI: Denies constipation, diarrhea, difficulty swallowing, heartburn, nausea, bloody stools and vomiting. : Urinary: denies incontinence. Musculo: Reports trouble walking and weakness, but denies leg swelling and limp. Skin: Denies Raynaud's, history of shingles and tattoo. Neuro: Denies ambulatory dysfunction, dizziness, numbness/tingling and tremor. Psych: Denies anxiety, insomnia and stress. Tera/Lymph: Denies anemia, bleeding/bruising tendency and past transfusion. Reviewed, no changes - 01/30/2020 at 11:39 am by Iftikhar Fisher PAST MEDICAL HISTORY: Advance Care Plan: Other Directive, P.O.A. Effective Date: 10/28/2017 PMH: Medical Problems: Hypercholesterolemia Accidents: Fracture - RT ARM Surgical Hx: Hip Replacement Rt - AISHA SOOD LT TKR - (07/04/2018) SAW @ [facility] LT TKR - (09/26/2019) SAW @ [facility] Anesthesia Complications: None Assistive Devices: Glasses, Dentures Reviewed and updated - 01/30/2020 at 11:39 am by Iftikhar Fisher SOCIAL HISTORY: SH: Marital: .Occupation: Not Currently Working.Work Status: Not Working Currently.Hand Dominance: Right-handed. Personal Habits: Cigarette Use: Former Cigarette Smoker.Alcohol: Occasionally.Drug Use: Denies Use.Enjoy Exercising: Never Exercises. Reviewed, no changes - 01/30/2020 at 11:39 am by Iftikhar Fisher VITALS: Ht: 73 Wt: 200lb Wt k.720 BMI: 26.4 BP: 144/77 Pulse: 82 T: 98.4 T: 36.9C ALLERGIES: No Known Drug Allergy MEDICATIONS: Tylenol Extra Strength 500 mg prn, Aspir-81 81 mg 1po bid, Amoxicillin 500 mg 2po tid, Probiotic 1po qday PRE-OP EXAM: General appearance:NORMAL Other: Eyes: Conjunctivae and lids: NORMAL Pupils: ERR Ears, Nose, Mouth, and Throat: NORMAL Other: Inspection of lips, teeth and gums: NORMAL Other: Neck: Examination of neck: no masses noted. Respiratory: Assessment of respiratory effort: NORMAL Other: Auscultation of lungs: clear to auscultation no wheezes, rhonchi or rales. Cardiovascular: Auscultation of heart: regular rate and rhythm, no murmurs, gallops or rubs. Exam of carotid arteries: NORMAL Other: Gastrointestinal: Exam of abdomen: soft, nontender, nondistended bowel sounds present. PHYSICAL EXAMINATION: On exam patient is currently walking with slight limping gait without the use of ambulatory assistance. Patient's left knee is cool to touch without erythema. Previous incision is well healed. Range of motion: 0 of extension to 110 flexion. Sensation intact to light touch IMPRESSION: 1. Left knee antibiotic spacer 2. Hypercholesterolemia 3. History of vertigo PLAN: Dr. Olvin Chavez did discuss and review with the patient all treatment options including surgical versus nonsurgical options. Patient does wish to proceed with the above-stated procedure. Potential risks, benefits, and complications of the procedure were discussed in detail including but not limited to , infection, nerve and blood vessel damage, persistent pain, numbness, tingling, paresthesias, blood clot, pulmonary embolism, and requirement for possible further surgery. The patient expressed full understanding and has no further questions for the doctor. Patient does agree to proceed with the above-stated procedure and has signed the surgery consent form. This dictation was created using voice recognition software. Phonetic and/or grammatical errors may exist. ___ I have re-examined the patient. There are no clinical changes since date of exam. ___ See progress notes for changes. ___ Dictated on admission Date: Time: Signature:
[2020-02-04 15:46] VITALS: BMI 25.8
[2020-02-05] VITALS (11 sets, daily range): BP systolic 124–158; BP diastolic 70–93; PULSE 68–98; RESP 16–18; TEMP 36.3–37.1; O2SAT 93–100; BMI 25.7
[2020-02-05] MEDS: Scopolamine 1mg/72hr Patch 1 PATCH TRANSDERM. (07:49)
[2020-02-05] MEDS: Acetaminophen 500 MG Tablet 1000 MG PO ×2 (07:49→22:26)
[2020-02-05] MEDS: Gabapentin 600 MG Tablet PO (07:50)
[2020-02-05] MEDS: Celecoxib 200 MG Capsule 400 MG PO (07:50)
[2020-02-05] MEDS: Lactated Ringers 1,000 ML 999 ML IV ×2 (07:51→14:01)
[2020-02-05] MEDS: Lactated Ringers 1,000 ML 75 ML IV (09:01)
[2020-02-05 09:15] LABS: Bedside Glucose 116 mg/dL (70-110)
[2020-02-05] MEDS: Cefazolin 2 GM in 0.9% Normal Saline 100 ML IV (11:02)
[2020-02-05] MEDS: dexAMETHasone 10 MG/ML Vial IV (11:12)
--- NOTE | 2020-02-05 13:11 | PCM.OPRPT ---
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 Left knee nonbiodegradable antibiotic delivery system Surgery/Procedure Performed:: Revision left total knee replacement all 3 components. Removal nonbiodegradable antibiotic delivery system Description of Surgical Findings:: Stable knee with good patella tracking trauma surgeon: Iftikhar Gil Type of Anesthesia:: Spinal Anesthesiologist: Mt Castaneda Special Medications: 2 g Ancef, 1 g TXA at incision, 1 g TXA closure, 10 mg Decadron, joint cocktail (5 mg Duramorph, 30 mL of 0.5% Ropivicaine, 1000 units of epinephrine, 30 mg of Toradol) Specimen's removed: 3 separate specimens were sent to microbiology Estimated Blood Loss (mL): 75 Fluids Replaced: 1600 mL crystalloid Description of Procedure: Implants used: Femur: [place] triathlon total stabilized size 5 femoral component. Stem 100 x 15 mm cemented. Augments distal 5 mm medially and laterally Tibia: Size 5 universal tibial baseplate. Stem 50 x 15 mm. Cone size C left medial lobe Poly: 16mm TS polyethylene Patella: 40 mm press-fit Brief history operative indications: 64-year-old male with total knee replacement in 2018. Patient demonstrated signs of infection. Antibiotic spacer was placed and articulating spacer was used. 2 dowel rods were also placed in the intramedullary canals. Patient went through his antibiotic treatment both IV and oral and was ready for return to surgery for definitive knee replacement. After ruling out recurrence of infection we agreed to proceed with revision total knee replacement which had risks which include but not limited to blood loss, DVTs, PEs, nervous damage, infection, the risk of anesthesia. Patient demonstrate understanding was able to sign informed consent. Medical clearance was obtained. Procedure: On the date of procedure patient's L lower extremity was marked in the preoperative area. The patient was then taken back to the operating room where the patient was placed on the table in the supine position. All bony prominences were identified a well-padded. Anesthesia assumed control of the C-spine and airway and remained controlled throughout the remainder of the procedure. A tourniquet was placed on the L upper thigh and the leg was prepped in a sterile fashion. The surgeon then scrubbed at this time. Upon reentering the room L lower extremity was draped in a standard orthopedic fashion. A timeout was then called and everyone agreed upon the side, the site, the procedure to be performed, patient's identity and antibiotics given. An Esmarch bandage was used to exsanguinate the extremity and the tourniquet was placed up to 250 mmHg with the knee in flexion. A midline skin incision was made using the previous incision and extending it proximally and distally to identify normal tissue planes. Medial and lateral flaps were developed appropriate releases. The standard medial parapatellar arthrotomy was made and the patella was subluxed laterally. At this time an aggressive synovectomy was performed re-creating the medial gutter first, then the suprapatellar pouch than the lateral gutter. Once this was completed the knee was flexed up an osteotome was used to remove the tibial polyethylene. The remainder of the synovium was debrided. The standard deep MCL release was done and the patella scar pad was resected and lateral releases were performed. Next our attention was directed to the femur. Where flexible osteotomes and TPS saw were used to break up the implant cement interface. This was done both medially and laterally. After this a bone tamp was used to remove the femur component from the end of the bone. This was done with minimal bone loss. At this time attention was now directed towards the proximal tibia. Possible osteotome and TPS saw were then used to break up the proximal tibia implant interface and stacked osteotomes were used to remove the tibial implant. This was done with minimal bone loss. Cement dowels were removed and tibial canals were debrided. Our attention was then turned to the tibia where the intramedullary canal was reamed to 18 and a size C left medial lobe tibial cone was reamed. We then made a cleanup cut on the tibia, A drop tobias was then used to verify the cut. A size 5 tibial base plate was selected. the knee was flexed and the tibial component was pinned into place and the boss reamer was used to ream the proximal medullary canal. The trial implant was impacted in its prepared position. Our attention was then turned back to the femur or the femur intramedullary canal was reamed to 19 mm using the previous implants a size 5 TCG cutting guide with a 19 x 100 mm trial stem was put into place. The medial epicondyle was used to set the joint line. With this TCG cutting guide we used a 16 mm polyethylene trial in order to help balance the gaps. Once the gaps were appropriately balanced the guide was firmly pinned into place. Distal cuts were made with 5 mm augments medially and 5 mm augment laterally. Posterior cuts were made with 0 mm augments medially and 0 mm augment laterally. Using the guide the box cut was made using a reciprocating saw. The appropriate trials were then placed on the femur and tibia. A trial polyethylene was trialed to ensure proper balancing and stability of the knee. Patella tracking, was then verified and corrected appropriately as needed. Our attention was then directed to the patella. Patella remained intact and appropriate. Based on x-rays it was firmly fixed. Patellar tracking was again checked and deemed appropriate. Final components were verified and opened, we did use a 15 x 100 mm femoral stem instead of the stem which was trialed with a TC G. 6 liters of normal saline were irrigated throughout the joint under low-pressure lavage. Then the cement was mixed in a vacuum. Scratch Hard Simplex cement with tobramycin was used. The wound was copiously irrigated with normal saline. When the cement was ready cement plugs were placed in the tibial cone was placed the components were cemented into place starting with the tibia, femur. The trial poly component was placed and the knee was placed in full extension. All excess cement was removed in the process. Once the cement had cured the tracking, alignment and balance were verified and a size 16 mm TS polyethylene component was placed. Once the final components were placed a chlorhexidine lavage was used and the wound was copiously irrigated with normal saline solution and the remainder of the periarticular injection was given. The wound was closed in a layer gurrola fashion using #1 vicryl interrupted sutures for the arthrotomy, 2-0 interrupted Vicryl for the subcuticular layer and belkis for final skin closure. A sterile compressive dressing was then placed. The patient was then awakened from anesthesia, transferred to the [facility] and transferred to the PACU for recovery. Post op plan DVT ppx: ASA 81mg BID, thigh high compression stockings Follow up: in office in 2 weeks for wound check PT: to start POD #0 at hospital, outpatient PT should be arranged. Antibiotics: Infectious diseases been consulted based on the patient's previous infectious bacteria to determine if prolonged antibiotics are needed. At a minimum he will remain on his current antibiotics for 1 more week while we watch cultures. My physician custody assistant was a vital part of this case. He was important in appropriate retraction during the case, and protection of soft tissues during bony cuts. His intimate knowledge of the case and my steps aided in safe and expedient completion of the procedure as well as appropriate position of the leg during the case. He was also vital in assisting with closure under my direct supervision. Grafts/Implants Used: [place] TS triathlon knee - Complications No intraoperative complications - Admit VTE Documentation VTE Present on Admission: No VTE Mechan Device Prophylaxis: SCD's, Thigh High BRIDGETTE Hose VTE Pharm Prophylaxis ordered?: Yes Essential Procedure Criteria Procedure Essential: Yes Criteria Note: On 12/25/2019 the [place] Department of Health ([facility]) Public Order signed by [facility] Director Mattie Mae M.D., regarding the Management of Non-Essential Surgeries and Procedures for the purpose of preserving Personal Protective Equipment (PPE) and critical hospital capacity and resources within [place] went into effect as of 12/26/2019 at 5:00PM. According to the [facility] Public Order: This action will remain in full force and effect until the State of Emergency declared by the Governor no longer exists or the Director of the [facility] rescinds or modifies this Order.. This [facility] order stated all non-essential or elective surgeries and procedures that utilize PPE should be delayed unless there is undue risk to the current or future health of a patient. After reviewing the aforementioned [facility] Public Order and the patients clinical case, I have determined that the scheduled procedure meets the criteria to go forward. Risk to Patient if Procedure Delayed: Presence of severe symptoms causing an inability to perform ADL's - Patient had weightbearing restrictions secondary to having an antibiotic spacer limiting his activities of daily living.
[2020-02-05] MEDS: Scopolamine 1mg/72hr Patch 1 PATCH TD (14:15)
--- NOTE | 2020-02-05 14:21 | RAD_ITS ---
STUDY: X-RAY - LEFT KNEE REASON FOR EXAM: Male, 64 years old. POST OP TECHNIQUE: AP and lateral view(s) of the knee. COMPARISON: Comparison is made with prior study dated September 26, 2019. FINDINGS: The patient is status post total knee replacement of the constrained type. There is good alignment. Postoperative soft tissue changes. RAD/Knee 1 or 2 Views IMPRESSION: Status post total knee replacement of the constrained type. Postoperative soft tissue changes. Electronically Signed: Giovanni Bowman, at 15:48 EDT , Service support ,
[2020-02-05] MEDS: Lactated Ringers 1,000 ML 125 ML IV (15:00)
[2020-02-05] MEDS: Ensure Surgery 237 ML LIQUID PO (17:35)
[2020-02-05] MEDS: oxyCODONE 5 MG Tablet PO ×2 (17:38→22:36)
[2020-02-05] MEDS: Cefazolin 1 GM/50 ML BAG IV (18:27)
[2020-02-05] MEDS: Aspirin 81 MG TAB.CHEW PO (22:27)
[2020-02-05] MEDS: Senna/Docusate Sodium 1 Tablet 2 TABLET PO (22:27)
[2020-02-06 02:47] VITALS: BP 100/57; PULSE 69; RESP 18; TEMP 36.8; O2SAT 93
[2020-02-06] MEDS: Cefazolin 1 GM/50 ML BAG IV (02:49)
[2020-02-06 06:47] LABS: Hematocrit 32.9 % (40-54); Hemoglobin 11.1 g/dL (13.0-16.5); Mean Corp Hgb Conc 33.7 g/dL (32-36); Mean Corpuscular Hgb 29.8 pg (27.0-32.0); Mean Corpuscular Volume 88.2 fL (80-94); Mean Platelet Vol. 9.9 fl (6.2-12.0); Platelet Count 186 K/mm3 (150-450); RBC Distribution Width CV 14.8 % (11.6-14.6); RBC Distribution Width SD 48.3 fl (35.1-43.9); Red Blood Count 3.73 M/mm3 (4.6-6.2); White Blood Count 9.2 K/mm3 (4.4-11.0)
[2020-02-06] MEDS: Acetaminophen 500 MG Tablet 1000 MG PO (06:58)
[2020-02-06] MEDS: oxyCODONE 5 MG Tablet PO ×2 (06:58→12:27)
[2020-02-06 07:15] LABS: Anion Gap 3 (5-15); BUN 18 mg/dL (7-18); BUN/Creat Ratio 18.9 RATIO (10-20); Calcium,Total 8.2 mg/dL (8.5-10.1); Chloride 111 mmol/L (98-107); Creatinine, Serum 0.95 mg/dL (0.70-1.30); EST Glomerular Filtration Rate 85 mL/min (>60); Est Glom Filt Rate - Afr Amer 102 mL/min (>60); Estimated Creatinine Clearance 92.54 ml/min; Glucose 114 mg/dL (74-106); Potassium 4.7 mmol/L (3.5-5.1); Sodium Level 138 mmol/L (136-145)
[2020-02-06 07:54] VITALS: BP 106/58; PULSE 76; RESP 18; TEMP 36.8; O2SAT 94
[2020-02-06] MEDS: AMOXICILLIN 500 MG CAPSULE 1000 MG PO (08:00)
[2020-02-06] MEDS: Senna/Docusate Sodium 1 Tablet 2 TABLET PO (08:01)
[2020-02-06] MEDS: Aspirin 81 MG TAB.CHEW PO (08:01)
[2020-02-06] MEDS: Famotidine 20 MG Tablet PO (08:01)
[2020-02-06] MEDS: Ensure Surgery 237 ML LIQUID PO (08:05)
--- NOTE | 2020-02-06 09:19 | PCM.PROGNOTE ---
Subjective: The patient was sitting in chair upon examination. Patient denies chest pain, shortness of breath, dizziness, lightheadedness, nausea, vomiting or calf pain. Pain is controlled on medications. No adverse events overnight. The patient denies any questions or concerns. He states that the knee feels good. Objective: Vital signs stable. Patient is afebrile. Patient is able to plantar flex and dorsiflex actively. Sensation is intact to light touch to saphenous, sural, superficial and deep peroneal and tibial nerve distributions. Dressing is clean, dry and intact. Negative Homans bilaterally. Negative signs and symptoms of DVT. - Physical Exam Vitals/I&O's: Vital Signs Temp Pulse Resp BP Pulse Ox 98.3 F 76 18 106/58 L 94 02/06/20 07:54 02/06/20 07:54 02/06/20 07:54 02/06/20 07:54 02/06/20 07:54 Oxygen Flow Rate (L/min) 6 Oxygen Delivery Method Room Air Weight: 91.1 kg Body Mass Index (BMI) 25.7 Intake and Output for Last 24 Hours 02/04/20 02/05/20 02/06/20 23:59 23:59 23:59 Intake Total 4886.25 / 4886.25 550 / 550 Output Total 1500 / 1500 550 / 550 Balance 3386.25 / 3386.25 0 / 0 General: Alert, Oriented x3, Cooperative Extremities: Capillary Refill Less than 3 Seconds, No Calf Tenderness, Peripheral Pulses Normal Skin: Incision - Left knee. Dressing dry and intact. Neurological: Cranial nerves II-XII grossly intact, Sensory exam intact to light touch and pain Psych/Mental Status: Normal Affect, Appropriate Microbiology Past 72 Hours 02/05/20 11:27 Tissue - Knee Gram Stain - Final Laboratory Results 02/06/20 06:30: WBC 9.2, RBC 3.73 L, Hgb 11.1 L, Hct 32.9 L, MCV 88.2, MCH 29.8, MCHC 33.7, RDW Std Deviation 48.3 H, RDW Coeff of Jewels 14.8 H, Plt Count 186, MPV 9.9 02/06/20 06:30: Sodium 138, Potassium 4.7, Chloride 111 H, Carbon Dioxide 24.0, Anion Gap 3 L, BUN 18, Creatinine 0.95, Estim Creat Clear Calc 92.54, Est GFR (MDRD) Af Amer 102, Est GFR (MDRD) Non-Af 85, BUN/Creatinine Ratio 18.9, Glucose 114 H, Calcium 8.2 L Current Medications Acetaminophen (Tylenol) 1,000 mg PO Q8 FOR[facility]LY [facility], [facility] Last Admin: 02/06/20 06:58 Dose: 1,000 mg Documented by: Amoxicillin (Amoxil) 1,000 mg PO TID FOR[facility], [facility] Last Admin: 02/06/20 08:00 Dose: 1,000 mg Documented by: Aspirin (Aspirin, Baby) 81 mg PO BID [facility], [facility] Last Admin: 02/06/20 08:01 Dose: 81 mg Documented by: Enteral Nutritional Formula (Ensure Surgery) 237 ml PO TIDCM FOR[facility]LY [facility], [facility] Last Admin: 02/06/20 08:05 Dose: 237 ml Documented by: Famotidine (Pepcid) 20 mg PO DAILY [facility], [facility] Last Admin: 02/06/20 08:01 Dose: 20 mg Documented by: Insulin Human Lispro (Humalog Kwikpen (Bkc)) 1 - 6 unit SC Q4H PRN PRN; Protocol PRN Reason: BG>/= 180, SEE PROTOCOL Ketorolac Tromethamine (Toradol (Bkc)) 15 mg IV Q6H PRN PRN PRN Reason: Pain Score 1-5/10 Stop: 02/07/20 14:18 Meloxicam (Mobic) 7.5 mg PO BID [facility] Morphine Sulfate () 2 - 4 mg IV Q2H PRN PRN PRN Reason: Pain Score 6-10/10 Morphine Sulfate () 2 - 4 mg IV Q2H PRN PRN PRN Reason: Pain Score 6-10/10 Ondansetron HCl (Zofran) 4 mg IV Q8H PRN PRN PRN Reason: NAUSEA Oxycodone HCl (Oxyir) 5 - 10 mg PO Q4H PRN PRN PRN Reason: Pain Score 4-10/10 Last Admin: 02/06/20 06:58 Dose: 10 mg Documented by: Promethazine HCl (Phenergan) 12.5 mg IM Q6H PRN PRN; Protocol PRN Reason: NAUSEA/VOMITING Senna/Docusate Sodium (Senokot-S, Kenna-Colace) 2 tablet PO BID FOR[facility] Last Admin: 02/06/20 08:01 Dose: 2 tablet Documented by: Sodium Chloride () 10 - 40 ml IV UD PRN PRN Reason: SALINE FLUSH Medical Necessity - Tobacco Use Smoking Status: Former smoker Tobacco Use: Non-smoker Assessment/Plan All Active Problems (Last Reviewed 02/04/20 @ 16:04 by QUITA Montes) Infection of prosthetic left knee joint (Acute) Preop cardiovascular exam (Acute) 1. Status post removal antibiotic spacer with revision left total knee arthroplasty post operative day #1. 2. Continue pain medications: Oxycodone and Tylenol 3. DVT prophylaxis: Aspirin 81 mg twice daily for 4 weeks and thigh-high BRIDGETTE hose 4. PT/OT: Weightbearing as tolerated on left lower extremity 5. H & H: 11.1/32.9, patient is asymptomatic 6. WBCs: 9.2, afebrile patient was given Decadron intraoperatively. 7. Encouraged incentive spirometry. 8. Continue postoperative medical management per medicine. 9. Postoperative drainage: Dressing is clean dry and intact. 10. The patient will continue on amoxicillin while following cultures. Dr. Faria has been consulted. 11. Disposition: Orthopedically stable. Plan is for discharge home this afternoon after physical therapy patient will follow-up per postop instructions. Prescriptions were E scribed to the [facility] retail pharmacy. The patient is scheduled for outpatient physical therapy at [facility] on February 08, 2020 at 8 AM with
--- NOTE | 2020-02-06 09:38 | DCINST_ITS ---
Discharge Diet: No Restrictions Discharge Activity: May Not Drive, May not drive while taking narcotic pain medications. May shower in (days): 1 Ice area for (Minutes): 20 - every hour while awake. Weight Bearing Status: Weight bearing as tolerated Elevate: Operative Extremity Additional Activity Instructions:: Wear elastic stockings for 2 weeks after your surgery. Call your doctor if your incision/area has: Continuous Slow Oozing, Sudden Increased Bleeding, Increased Pain/ Swelling, Increased Redness, Foul Smelling Discharge Call your doctor if you observe: Fever of 101 or Higher, Coldness, Increased Pain, Numbness or Tingling, Change in Color, Calf discomfort, Uncontrolled pain Remove Dressing in (days):: 5 Cleanse incision/area with: Soap & Water Allergies/Adverse Reactions: Allergies No Known Allergies Allergy (Verified 02/05/20 07:40) Medications to take at Discharge Acetaminophen [Tylenol] 1,000 mg PO Q8 30 Days #100 tab 02/06/20 Amoxicillin 1,000 mg PO TID 7 Days #42 tab 02/06/20 Aspirin [Aspirin, Baby] 81 mg PO BID 30 Days #60 tab.chew 02/06/20 Famotidine [Pepcid] 20 mg PO DAILY 30 Days #30 tab 02/06/20 Meloxicam [Mobic] 7.5 mg PO BID 30 Days #60 tab 02/06/20 Oxycodone [Oxyir] 5 - 10 mg PO Q4H PRN PRN 7 Days #30 tablet 02/06/20 Senna/Docusate Sodium [Senokot-S] 2 tab PO BID #10 tab 02/06/20 The following prescriptions were given: Amoxicillin 1,000 mg PO TID 7 Days #42 tab Transmission Status: Sent to [facility] Aspirin [Aspirin, Baby] 81 mg PO BID 30 Days #60 tab.chew Transmission Status: Sent to [facility] Meloxicam [Mobic] 7.5 mg PO BID 30 Days #60 tab Transmission Status: Sent to [facility] Oxycodone [Oxyir] 5 - 10 mg PO Q4H PRN PRN 7 Days #30 tablet PRN Reason: Pain Score 4-10/10 Transmission Status: Pending to [facility] Famotidine [Pepcid] 20 mg PO DAILY 30 Days #30 tab Transmission Status: Sent to [facility] Senna/Docusate Sodium [Senokot-S] 2 tab PO BID #10 tab Transmission Status: Sent to [facility] Acetaminophen [Tylenol] 1,000 mg PO Q8 30 Days #100 tab Transmission Status: Sent to [facility] Primary Care Physician: Mike Mccall MD [Primary Care Provider] - Test Results: Test results from this visit will be discussed in further detail at your follow- up appointment, if applicable. Please Follow Up With: Iftikhar Gil PA-C When: February 18, 2020 at 11:00 in [place] Please Follow Up With: Aayush for Physical Therapy When: February 08, 2020 at 8:00 am at [facility]
[2020-02-06 09:40] VITALS: BP 106/58; PULSE 76; RESP 18; TEMP 36.8; O2SAT 94
--- NOTE | 2020-02-06 10:30 | CASEMGMT ---
DENEEN KELLY Face to Face with patient for initial transition planning/care coordination assessment. RN ROBIN introduced self and role at [facility]. Patient sitting in chair, alert and oriented. Patient willing to participate in assessment and is able to answer all questions appropriately. Care providers, pharmacy, and demographics verified. Patient wishes to discharge home and is setup with [facility] for outpatient therapy. Patient states he has no further needs or concerns at this time. CM to follow for discharge planning needs that may arise. PCP: Stefany Specialists: Kathy Odell Pharmacy: [facility] retail Insurance: [employer] [place] Prescription Benefit: yes Living Will/HPOA: yes, daughter Carolina Bruno LNOK: daughter, sister Living Arrangements: Patient lives alone in single story home with 2 steps and railing to enter the home. Patient states he is independent at home. Transportation: daughter or brother in law DME/HHC: Patient states he has shower chair, raised toilet, grab bars, hip kit, walker at home. Patient states that he has outpatient therapy for Tuesday at [facility]. Patient has previously had [facility]. Disposition Plan: Patient to discharge home with outpatient therapy, family support, and follow-up plans in place. Luba RICKETTS, RN, CM
--- NOTE | 2020-02-06 14:28 | PCM.HP.ID ---
Problem List (1) Infection of prosthetic left knee joint Status: Acute Reason for Consult: PJI Consulted by: Dr. 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 Surg cx x2 with actinomyces. Discharged on iv ceftriaxone for 6 week course, then changed to po amoxicillin. Has done well since last surgery. Was off abx for a week recently for pre-op testing, but was back on amoxicillin for dental procedures in past 1-2 weeks. Feeling well, no fever. Taken to OR 02/[address] Chavez for 2nd stage repair. Surg cxs sent. On po amox. Discharge today. Full ROS performed and neg except as noted above. - Medical History Past Medical History (Chronic Problems): Chronic Problems (Last Reviewed 02/04/20 @ 16:04 by QUITA Montes) Patent foramen ovale (Chronic) Nonrheumatic aortic valve insufficiency (Chronic) Dilated aortic root (Chronic) Hyperlipidemia (Chronic) Allergies/Adverse Reactions: Allergies No Known Allergies Allergy (Verified 02/05/20 07:40) Home Medications: Ambulatory Orders Medication Instructions Recorded Acetaminophen [Tylenol] 1,000 mg PO Q8 30 Days #100 tab 02/06/20 Amoxicillin 1,000 mg PO TID 7 Days #42 tab 02/06/20 Aspirin [Aspirin, Baby] 81 mg PO BID 30 Days #60 tab.chew 02/06/20 Famotidine [Pepcid] 20 mg PO DAILY 30 Days #30 tab 02/06/20 Meloxicam [Mobic] 7.5 mg PO BID 30 Days #60 tab 02/06/20 Oxycodone [Oxyir] 5 - 10 mg PO Q4H PRN PRN 7 Days 02/06/20 #30 tab Senna/Docusate Sodium [Senokot-S] 2 tab PO BID #10 tab 02/06/20 - Social History SMOKING STATUS:: Former smoker Vital Signs Temp Pulse Resp BP Pulse Ox 98.3 F 76 18 106/58 L 94 02/06/20 07:54 02/06/20 07:54 02/06/20 07:54 02/06/20 07:54 02/06/20 07:54 Oxygen Flow Rate (L/min) 6 Oxygen Delivery Method Room Air Weight: 91.1 kg Body Mass Index (BMI) 25.7 Microbiology Past 72 Hours 02/05/20 11:44 Gram Stain - Final Tissue - Knee Wound Culture - Preliminary No growth-Final to follow 02/05/20 11:34 Gram Stain - Final Tissue - Knee Wound Culture - Preliminary No growth-Final to follow 02/05/20 11:27 Gram Stain - Final Tissue - Knee Wound Culture - Preliminary No growth-Final to follow Laboratory Tests Past 24 Hrs 02/06/20 02/06/20 06:30 06:30 WBC 9.2 RBC 3.73 L Hgb 11.1 L Hct 32.9 L MCV 88.2 MCH 29.8 MCHC 33.7 RDW Std Deviation 48.3 H RDW Coeff of Jewels 14.8 H Plt Count 186 MPV 9.9 Sodium 138 Potassium 4.7 Chloride 111 H Carbon Dioxide 24.0 Anion Gap 3 L BUN 18 Creatinine 0.95 Estim Creat Clear Calc 92.54 Est GFR (MDRD) Af Amer 102 Est GFR (MDRD) Non-Af 85 BUN/Creatinine Ratio 18.9 Glucose 114 H Calcium 8.2 L - Other Studies Radiology: [] reviewed Other Studies: [] Route of nutrition/ use of supplements: [] Nutritional Intake: [] IV Site: [] [place] Catheter: [] - Physical Exam General: Alert, Oriented x3, Cooperative, No apparent distress HEENT: Atraumatic, PERRLA, EOMI Neck: Supple, No Nodes Lungs: Clear to auscultation, Normal air movement Cardiovascular: Regular rate, Regular Rhythm, No murmurs Abdomen: Soft, Non Tender, Non-Distended Extremities: No edema Skin: Incision - L knee bandaged, no redness IV Site: Peripheral, without redness Musculoskeletal: - - mild L knee soreness Neurological: Cranial nerves II-XII grossly intact - Assessment/Plan Antibiotics: [] Assessment/Plan: [] L knee PJI - now s/p spacer removal and joint replacement 02/05/20. Prior surg cxs with actinomyces 09/26/19. Requested micro lab hold cxs for 14 days. He is to continue amoxicillin for 14 days at home while these are pending. Had some recent dental work while on abx. Will follow as needed, thank you.
== END 2020-02-06 13:03 | disposition home or self-care (01) | DRG 467 ==
LOC: ACINP 15:08 → MS3 15:10
PROVIDERS: Admitting Provider Specialist; PCP Family Medicine; Referring Provider Specialist; Visit Provider Specialist
PROC: 0SRD0J9 Replacement of Left Knee Joint with Synthetic Substitute, Cemented, Open Approach (ICD-10-PCS; principal; 2020-02-05 10:35)
DX: T84.54XA Infection and inflammatory reaction due to internal left knee prosthesis, initial encounter (principal); Q21.1 Atrial septal defect; Y83.1 Surgical operation with implant of artificial internal device as the cause of abnormal reaction of the patient, or of later complication, without mention of misadventure at the time of the procedure; Z96.641 Presence of right artificial hip joint; E78.00 Pure hypercholesterolemia, unspecified; I35.1 Nonrheumatic aortic (valve) insufficiency; Z87.891 Personal history of nicotine dependence; Z79.1 Long term (current) use of non-steroidal anti-inflammatories (NSAID)
CPT/HCPCS: 36415; 73560; 80048; 82962; 85027; 87015; 87070; 87075; 87102; 87116; 87176; 87205; 87206; 97110; 97116; 97162; 97166; 97530; 99251; C1776; J7050; J7120; G0463; J2405